=== PATIENT | male | born 1935 | race Caucasian/White ===

== ENCOUNTER 2020-03-14 10:48 | Outpatient (CLI) | payer MEDICARE, SELFPAY | END 2020-03-14 10:49 | disposition home or self-care (01) | LOC: ANHAUDIO 10:52 | PROVIDERS: PCP Family Medicine; Visit Provider Family Medicine | DX: H91.90 Unspecified hearing loss, unspecified ear (principal) | CPT/HCPCS: 99199 ==

== ENCOUNTER 2020-05-05 13:03 | Outpatient (CLI) | payer MEDICARE, SELFPAY | END 2020-05-05 13:04 | disposition home or self-care (01) | LOC: ANHAUDIO 13:04 | PROVIDERS: PCP Family Medicine; Visit Provider Family Medicine | DX: H90.3 Sensorineural hearing loss, bilateral (principal) | CPT/HCPCS: 92557; 92567 ==

== ENCOUNTER 2020-05-16 11:29 | Outpatient (RCR) | payer SELFPAY | END 2020-05-16 23:59 | disposition home or self-care (01) | LOC: ANHAUDIO 11:29 | PROVIDERS: PCP Family Medicine; Visit Provider Family Medicine | DX: Z46.1 Encounter for fitting and adjustment of hearing aid (principal) | CPT/HCPCS: 99199 ==

== ENCOUNTER 2020-08-12 10:24 | Emergency (ER) | payer MEDICARE, SELFPAY ==
[2020-08-12 10:37] VITALS: BP 119/69; PULSE 85; RESP 16; TEMP 36.4; O2SAT 95
[2020-08-12 11:33] VITALS: BP 119/69; PULSE 85; RESP 18; TEMP 36.4; O2SAT 95
--- NOTE | 2020-08-12 11:57 | ED.GENADULT ---
HPI - General Adult General Chief complaint: Wound/Laceration <RAJIV Mckeon Last Filed: 08/12/20 13:15> Stated complaint: wound on elbow <RAJIV Mckeon Last Filed: 08/12/20 13:15> Time Seen by Provider: 08/12/20 11:15 <RAJIV Mckeon Last Filed: 08/12/20 13:15> Source: patient and family <RAJIV Mckeon Last Filed: 08/12/20 13:15> Mode of arrival: ambulatory <RAJIV Mckeon Last Filed: 08/12/20 13:15> Limitations: no limitations <RAJIV Mckeon Last Filed: 08/12/20 13:15> History of Present Illness HPI narrative: Patient is a pleasant 85-year-old male who presents with his for skin tear to the posterior left elbow patient notes that he injured the elbow 2 days ago when he sustained a mechanical fall related to gait issues. Patient lives at home with his and has gait issues historically was with her and notes that he has had no other issues and he is otherwise been fine. . believes his tetanus to be up-to-date in the last 10 years. Patient sitting comfortably in the room and notes that there is no pain with movement of the elbow joint. Patient denies other injuries or complaints related to the fall specifically no head injury <RAJIV Mckeon Last Filed: 08/12/20 13:15> Related Data Home medications: Home Medications Medication Instructions Recorded Confirmed cyanocobalamin (vitamin B-12) 100 100 mcg PO DAILY 12/04/19 mcg tablet diltiazem HCl 120 mg 120 mg PO DAILY 12/04/19 capsule,extended release 24 hr metoprolol succinate 25 mg 25 mg PO DAILY 12/04/19 tablet,extended release 24 hr vit C 250 mg-E 200 unit-zinc 40 1 tablet PO BID 12/04/19 mg-copper 1 [id number] capsule warfarin 5 mg tablet 5 mg PO DAILY 12/04/19 <RAJIV Mckeon Last Filed: 08/12/20 13:15> Allergies/adverse reactions: Allergies Allergy/AdvReac Type Severity Reaction Status Date / Time Plyrjvu-Qfp-Hqc Reductase Allergy Mild SWELLING Verified 08/12/20 11:31 Inhibitor simvastatin Allergy Unknown Swelling Verified 08/12/20 11:31 <Jacob Gaffney PA-C - Last Filed: 08/12/20 13:15> Review of Systems Review of Systems: All systems reviewed & are unremarkable except as noted in HPI and below <Jacob Gaffney PA-C - Last Filed: 08/12/20 13:15> [facility] Past Medical History Medical History: Medical History Anemia, unspecified Arthritis Gait instability Hematochezia Peripheral neuropathy PND (post-nasal drip) Upper extremity weakness <Jacob Gaffney PA-C - Last Filed: 08/12/20 13:15> Family History Family History: Family History (Updated 12/11/17 @ 17:27 by DOCTOR UNKNOWN) Father Family history of cardiovascular disease <Jacob Gaffney PA-C - Last Filed: 08/12/20 13:15> Social History Social History: Social History Smoking status: Never smoker Second hand tobacco smoke exposure: No Alcohol intake: never Substance use: never Substance use type: does not use Gender identity (if verbalized by the patient): Male Sexual Orientation (if Verbalized by the Patient): Straight or Heterosexual <Jacob Gaffney PA-C - Last Filed: 08/12/20 13:15> Exam Narrative: Exam Narrative: GENERAL: Well-appearing, well-nourished, and in no acute distress. HEAD: Normocephalic, atraumatic. EYES: PERRLA and EOMI. ENT: Nares clear, no rhinorrhea or epistaxis. Mucous membranes moist. Oropharynx without tonsillar hypertrophy exudate or other lesions. NECK: Supple. No adenopathy or masses. CHEST: Clear to auscultation. No respiratory distress. No wheezes rales or rhonchi HEART: Regular rate and rhythm. No murmur heard. Normal peripheral pulses. ABDOMEN: Soft, nontender, nondistended EXTREMITIES: Normal range of motio
[2020-08-12 14:08] VITALS: BP 118/71; PULSE 88; RESP 16; TEMP 36.3; O2SAT 97
== END 2020-08-12 14:09 | disposition home or self-care (01) ==
PROVIDERS: Emergency Provider Emergency Medicine; PCP Family Medicine
DX: S51.012A Laceration without foreign body of left elbow, initial encounter (principal); W19.XXXA Unspecified fall, initial encounter; M19.90 Unspecified osteoarthritis, unspecified site; G62.9 Polyneuropathy, unspecified; R26.9 Unspecified abnormalities of gait and mobility
CPT/HCPCS: 99282

== ENCOUNTER 2021-06-07 10:55 | Observation (INO) | payer MEDICARE, SELFPAY ==
[2021-06-07] VITALS (38 sets, daily range): BP systolic 97–132; BP diastolic 42–89; PULSE 71–107; RESP 15–31; TEMP 36.5–37.1; O2SAT 94–98; BMI 31.6
--- NOTE | ~2021-06-07 | US_ITS ---
EXAMINATION: US carotid duplex BI EXAM DATE: 06/08/2021 10:12 INDICATION: Weakness. Confusion and altered mental status. TECHNIQUE: Grayscale, color and pulsed Doppler images of the cervical carotid arteries were obtained . The degree of vessel stenosis is placed in one of the following categories: normal, <50% stenosis, 50-69% stenosis, >=70% stenosis but less than near-occlusion, near-occlusion, or occlusion. Note that percent stenosis relative to normal distal artery lumen diameter is indirectly measured from velocit y measurements as described by Dion, et al. Radiology 2003; 229:[id number]. Comparison is made to prior examination from 04/11/2018. FINDINGS: Incidental note made of slightly irregular heart rate. RIGHT SIDE: Right common carotid artery peak systolic velocity (PSV in cm/s): 65 Right bulb/internal carotid artery peak systolic velocity (PSV in cm/s): 98 Right internal carotid artery end diastolic velocity (EDV in cm/s): 25 Right ICA/CCA peak systolic ratio: 1.5 Right external carotid artery peak systolic velocity (PSV in cm/s): 77 Right vertebral artery antegrade flow: yes There is mild carotid bulb plaque. Velocity and Doppler waveforms in the common and internal carotid arteries is normal. LEFT SIDE: Left common carotid artery peak systolic velocity (PSV in cm/s): 76 Left bulb/internal carotid artery peak systolic velocity (PSV in cm/s): 124 Left internal carotid artery end diastolic velocity (EDV in cm/s): 31 Left ICA/CCA peak systolic ratio: 1.6 Left external carotid artery peak systolic velocity (PSV in cm/s): 155 Left vertebral artery antegrade flow: yes Common carotid artery has a patent endograft or stents. There is mild carotid bulb plaque. Velocity and Doppler waveforms in the common and internal carotid arteries is normal. IMPRESSION: 1. Less than 50 percent stenosis in the right internal carotid artery. 2. Less than 50 percent stenosis in the left internal carotid artery. 3. Incidental slightly irregular heart rate; correlate with EKG. Reviewed, dictated and finalized at location B.
--- NOTE | ~2021-06-07 | MR_ITS ---
EXAMINATION: MR brain/brain stem wo/w con DATE: 06/10/2021 12:59 INDICATION: Weakness. Altered mental status. TECHNIQUE: Magnetic resonance imaging (MRI) of the brain and brainstem was performed without and with 18 mL MultiHance intravenous contrast. Sequences included sagittal and axial T1-weighted FSE, axial diffusion-weighted FS EPI, axial T2*-weighted GRE, axial T2-weighted FLAIR Propeller, and axial T2-we ighted Propeller. Postcontrast sequences included axial and coronal T1-weighted FSE. Apparent diffusi on coefficient (ADC) maps were created. COMPARISON: Brain MRI 04/11/2018, head CT 06/07/2021 FINDINGS: There are old infarcts in the cerebellum bilaterally. There is an old lacunar infarct in th e right carotid nucleus. There are scattered areas of nonspecific increased T2-weighted signal intens ity in the cerebral white matter. There is a small area of chronic cystic encephalomalacia in the rig ht frontal lobe deep white matter. There is no intracranial hemorrhage, acute infarction, or abnormal intracranial mass lesion. The ventricles are normal in size. There is mucosal thickening in the para nasal sinuses. There are likely changes of ocular lens replacement surgeries. There is a trace right mastoid effusion. IMPRESSION: 1. Old infarcts in the cerebellum, right caudate nucleus, and right frontal lobe. 2. Moderate nonspecific cerebral white matter disease, which likely represents chronic small vessel i schemic disease, worsened from 04/11/2018. Reviewed, dictated and finalized at location A. IMPRESSION: 1. Old infarcts in the cerebellum, right caudate nucleus, and right frontal lob e. 2. Moderate nonspecific cerebral white matter disease, which likely represents chronic small vessel ischemic disease, worsened from 04/11/2018.
--- NOTE | ~2021-06-07 | XR_ITS ---
EXAMINATION: XR barium swallow modified DATE: 06/10/2021 13:30 INDICATION: Cough during meals. Lewy body dementia. TECHNIQUE: The patient was given barium-containing material of multiple consistencies to swallow by jonny sadler speech pathologist while I performed fluoroscopy. Fluoroscopy exposure time was 2.9 minutes. The n umber of fluoroscopy images saved to the PACS was 1. Dose-area product was 3.1 Gy-cm^2. FINDINGS: There was tongue pumping and disorganized tongue movement. Reduced tongue base retraction is noted. T here is vallecular residue. There is no laryngeal penetration or aspiration. IMPRESSION: 1. No laryngeal penetration or aspiration. 2. Please refer to the speech therapy report for recommendations. Reviewed, dictated and finalized at location A.
--- NOTE | ~2021-06-07 | XR_ITS ---
EXAMINATION: XR chest 2V EXAM DATE: 06/07/2021 12:17 INDICATION: Weakness. TECHNIQUE: Frontal and lateral projections of the chest obtained and reviewed. There is no prior lacey dy for comparison. FINDINGS: The lungs are clear. There are no pleural effusions. There is cardiomegaly and pulmonary vascular congestion. Sternotomy wires are present without findings to suggest sternal dehiscence. Aor tic valve stent or replacement. There is no pneumothorax suspected. The bones and soft tissues are unremarkable. IMPRESSION: Cardiomegaly, congestion. Reviewed, dictated and finalized at location B. IMPRESSION: Cardiomegaly, congestion.
--- NOTE | ~2021-06-07 | CT_ITS ---
EXAMINATION: CT brain wo con DATE: 06/07/2021 15:37 INDICATION: Altered mental state. Confusion. TECHNIQUE: Computed tomography (CT) of the head was performed without intravenous contrast. The mA wa s adjusted according to patient size. Iterative reconstruction technique was employed. Exam dose: 75 6.67 mGy-cm total exam DLP. COMPARISON: 04/11/2018 CT brain and MR brain examination FINDINGS: The examination is limited by motion artifact. There is cerebral moderately prominent volume loss consistent with patient age. There is nonspecific diminished attenuation of the cerebral white matter, likely due to chronic small vessel ischemic changes. Chronic lacunar infarct of left basal ganglia. Bilateral cerebellar hemispheric infarcts are suggeste d. There are bilateral vertebral and basilar as well as internal carotid artery calcifications. No intracranial mass lesion or hemorrhage or recent cerebrovascular accident is evident. No subdural or epidural hematoma. No fracture or bone destruction of the cranial vault. There is partial opacification of the right ethmoid air cells. There is mild anterior right maxillary sinus mucoperiosteal thickening. The paranasal sinuses and the mastoid air cells otherwise appear no rmally developed and aerated. IMPRESSION: Cerebral atherosclerosis and chronic small vessel ischemic changes of the cerebral white matter Chronic left basal ganglia lacunar infarct and bilateral chronic cerebellar infarcts No acute intracranial finding is identified; examination is limited by motion artifact. Reviewed, dictated and finalized at Location A. Reviewed, dictated and finalized at location A. IMPRESSION: Cerebral atherosclerosis and chronic small vessel ischemic changes of the cerebral white matter Chronic left basal ganglia lacunar infarct and bilateral chronic cerebellar inf arcts No acute intracranial finding is identified; examination is limited by motion a rtifact.
--- NOTE | 2021-06-07 11:04 | ECG_ITS ---
Measurements Intervals [place] Rate: 91 P: [place]: 0 QRS: -72 QRSD: 170 T: 15 QT: 399 QTc: 492 Interpretive Statements ATRIAL FIBRILLATION VENTRICULAR PREMATURE COMPLEX LEFT AXIS DEVIATION RIGHT BUNDLE BRANCH BLOCK INFERIOR INFARCT, AGE INDETERMINATE EXTENSIVE ANTERIOR INFARCT, AGE INDETERMINATE ABNORMAL ECG Electronically Signed On 06-07-2021 16:23:13 CDT by Luis Rosa D.O.
[2021-06-07 11:19] LABS: Glucose Point of Care 129 mg/dl (65-105)
[2021-06-07 11:45] LABS: Basophils Percent Auto 0.2 % (0.2-1.2); Eosinophils Percent Auto 0.2 % (0-4.4); Hematocrit 33.9 % (42.0-52.0); Immature Granulocyte Absolute 0.06 K/mm3 (0.00-0.031); Immature Granulocyte Percent A 0.5 % (0-0.5); Lymphocytes Absolute Auto 0.51 K/mm3 (0.9-3.2); Lymphocytes Percent Auto 4.1 % (18.3-44.2); Mean Corpuscular HGB Conc 32.4 g/dl (32-36); Mean Corpuscular Hemoglobin 30.4 pg (26-34); Mean Corpuscular Volume 93.6 fl (80-100); Monocytes Absolute Auto 1.1 K/mm3 (0.1-0.6); Monocytes Percent Auto 8.6 % (2.6-8.5); Neutrophils Absolute Auto 10.8 K/mm3 (1.3-6.7); Neutrophils Percent Auto 86.4 % (45.5-73.1); Platelet Count Result 96 k/mm3 (150-375); Red Blood Count 3.62 M/mm3 (4.6-6.20); White Blood Count 12.5 K/mm3 (4.5-10.0)
[2021-06-07 11:57] LABS: Albumin Level 4.5 g/dL (3.5-5.1); Alkaline Phosphatase 93 U/L (38-126); Anion Gap 9 mmol/L (8-16); Aspartate Amino Transferase 24 U/L (17-59); Bilirubin,Total 0.9 mg/dL (0.2-1.3); Blood Urea Nitrogen 31 mg/dL (9-20); Calcium 9.4 mg/dL (8.4-10.2); Carbon Dioxide 25 mmol/L (22-30); Chloride 107 mmol/L (98-107); Estimated CRCL calculation 47 ml/min; Estimated Glomerular Filt Rate 58; Glucose 129 mg/dL (75-110); Potassium 4.6 mmol/L (3.4-5.0); Sodium 141 mmol/L (137-145)
[2021-06-07 12:02] LABS: INR 2.9; Prothrombin Time 29.6 Seconds (11.1-14.7)
[2021-06-07 12:17] LABS: Alanine Aminotransferase < 6 U/L (4-50)
[2021-06-07 12:18] LABS: Add Urine Microscopic? YES; Appearance Urine Clear (Clear); Bilirubin Urine Negative (Negative); Blood Urine Negative (Negative); Color Urine Yellow (Yellow); Glucose Urine UA Negative (Negative); Ketones Urine Negative (Negative); Leukocyte Esterase Ur Negative LEU/UL (Negative); Nitrate Urine Negative (Negative); Protein Urine Negative (Negative); RBC Urine 0-2 /hpf (0-2); Specific Grav Ur 1.014 (1.001-1.035); Urobilinogen Urine Negative mg/dL (<2.0); WBC Urine 0-3 /hpf
--- NOTE | 2021-06-07 13:39 | ED.WEAKNESS ---
HPI - Weakness General Chief complaint: Weakness Stated complaint: weakness Time Seen by Provider: 06/07/21 13:39 Source: family Mode of arrival: wheelchair Limitations: altered mental status History of Present Illness HPI Narrative: Patient is an 85-year-old male with history of gait instability, hypertension, hyperlipidemia, atrial fibrillation on anticoagulation, anemia peripheral neuropathy who presents for evaluation of weakness. Patient's provides much of the history at bedside. She states that the patient has had been weak over the course of the day. Patient was unable to ambulate this morning, and typically utilizes a walker to assist with his ambulation. Patient was unable to this, and was unable to help him stand at bedside. Patient is pleasant, alert to person, place, not to time at bedside. Intermittently, he can tell me the correct year. He denies any acute complaints of headache, chest pain or shortness of breath. Patient's states he is vaccinated for Covid. No history of Covid infection. He has had a runny nose and dry cough. He denies any leg pain. He denies recent fall or injury. I question the patient's and if he has a working diagnosis of Parkinson's dementia, she stated that he has not been diagnosed with this at this point, but has been taking carbidopa/levodopa. Patient does have a shuffling gait, no pill-rolling per . Related Data Home Medications Medication Instructions Recorded Confirmed cyanocobalamin (vitamin B-12) 100 100 mcg PO DAILY 12/04/19 05/09/21 mcg tablet diltiazem HCl 120 mg 120 mg PO DAILY 12/04/19 05/09/21 capsule,extended release 24 hr metoprolol succinate 25 mg 25 mg PO DAILY 12/04/19 05/09/21 tablet,extended release 24 hr vit C 250 mg-vit E 90 mg-zinc 40 1 tablet PO BID 12/04/19 05/09/21 mg-copper 1 ww-mqzjnm-yafayw capsule warfarin 5 mg tablet 5 mg PO DAILY 12/04/19 05/09/21 Allergies Allergy/AdvReac Type Severity Reaction Status Date / Time Emrinko-Mvm-Pvh Reductase Allergy Mild SWELLING Verified 05/09/21 14:18 Inhibitor simvastatin Allergy Unknown Swelling Verified 05/09/21 14:18 Review of Systems Review of Systems: Narrative: CONSTITUTIONAL: Denies fever, chills, or sweats. EYES: Denies visual changes, redness, or discharge. ENT: Reports rhinorrhea and congestion, denies sore throat CARDIOVASCULAR: Denies chest pain, palpitations, or edema. RESPIRATORY: Reports dry cough without shortness of breath GASTROINTESTINAL: Denies abdominal pain, nausea, vomiting, or diarrhea. GENITOURINARY: Denies dysuria or hematuria. SKIN: Denies rash or itching. MUSCULOSKELETAL: Denies back pain, joint pain, or myalgia. NEUROLOGIC: Denies headache, numbness, reports lower extremity weakness PMFSH Past Medical History Medical History (Updated 06/07/21 @ 16:52 by Mahnaz Angelo MD) Anemia, unspecified Arthritis Gait instability Hematochezia Peripheral neuropathy PND (post-nasal drip) Upper extremity weakness Family History Family History Father Family history of cardiovascular disease Social History Social History Smoking status: Never smoker Second hand tobacco smoke exposure: No Alcohol intake: never Substance use: never Substance use type: does not use Gender identity (if verbalized by the patient): Male Exam Narrative: Exam Narrative: GENERAL: Awake, alert, conversant, pleasant HEAD: Normocephalic, atraumatic. EYES: PERRLA and EOMI. ENT: Nares clear, no rhinorrhea or epistaxis. Mucous membranes moist. NECK: Supple. CHEST: No respiratory distress, breathing even and non labored HEART: Tachycardic rate, sinus rhythm ABDOMEN:Non distended, non tender EXTREMITIES: Normal range of motion. No edema. SKIN: Warm, dry, no rash. NEURO:No focal deficits. Alert and oriented x3. EOMs intact without nystagmus. No fac
[2021-06-07 17:50] LABS: Troponin I 0.057 ng/mL (0.000-0.034)
--- NOTE | 2021-06-07 20:20 | ADMGEN ---
This patient, Candice Marin, was admitted to IMU Room 232-01 on 06/07/21 at 2015. Patient/family oriented to hospital policies and general routines including ID bracelet, bed and alarms, visiting hours, pain management, procedures, bathroom and other care routines, personal items, smoking policy, room service/diet, and visiting hours. Information on how to activate the Rapid Response Team has been discussed. Patient/Family are encouraged to report perceived risks to care and to ask questions if they do not understand what they are told or what they should do.
--- NOTE | 2021-06-07 21:02 | PM.IMHP ---
H&P: HPI History of Present Illness Date/Time: 06/07/21 21:02Thireji is an 85-year-old male patient who has a past medical history of having aortic valve replacement. The patient is on Parkinson's medicine but isn't sure why he is on it. The patient is very hard of hearing and difficult to communicate with. The patient was brought in by his today into the emergency room for complaints of gait instability. The patient has a history of peripheral neuropathy. The patient's stated that he typically will ambulate with his walker but today he was unable to get up and walk with his walker. The was unable to help the patient stand up to his walker. He is alert orientated to person place and time. He denies any chest pain or shortness of breath. He had a runny nose and cough. The patient stated that he did receive both sets of COVID-19 vaccine. However since he had a runny nose and a dry cough the patient was swabbed in the emergency room for COVID-19. The patient has a shuffling walk but no pill rolling activities. Head CT was read as he report a atherosclerosis and chronic small vessel ischemic changes of the cerebral white matter. 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 No acute intracranial findings. His white count was elevated 12.5. His H&H 11.0 in 33.9. His troponin bumped to 0.057 however the patient is not having any chest pain. EKG was read as atrial fibrillation. Left axis deviation. Right bundle branch block. Inferior infarct age indeterminate. Extensive anterior infarction age intermittent abnormal EKG. Chest x-ray cardiomegaly, congestion.The patient was admitted to obs. dos 06/07/21. Chief Complaint: Weakness Review of Systems Review of Systems: All systems reviewed & are unremarkable except as noted in HPI and below Constitutional: Constitutional: Reports as per HPI and Reports no additional constitutional complaints Eyes: Eyes: Reports as per HPI and Reports no additional eye complaints ENT: Reports system reviewed and no additional complaints, except as documented and Reports Normal hearing present Cardiovascular: Cardiovascular: Reports no additional cardiovascular complaints Respiratory: Respiratory: Reports no additional respiratory complaints and Reports no additional respiratory complaints Gastrointestinal: Gastrointestinal: Reports as per HPI and Reports no additional gastrointestinal complaints Musculoskeletal: Musculoskeletal: Reports no additional musculoskeletal complaints Integumentary/Breasts: Skin/Breast: Reports system reviewed and no additional complaints, except as docu and Reports as per HPI Neurologic: Reports system reviewed and no additional complaints, except as documented, Reports as per HPI and Reports Normal hearing present Psychiatric: Psychiatric: Reports no additional psychiatric complaints and Reports as per HPI Endocrine: Endocrine: Reports no additional endocrine complaints Hematologic/Lymphatic: Hematologic/Lymphatic: Reports no additional hematologic/lymphatic complaints Allergic/Immunologic: Allergic/Immunologic: Reports no additional allergic/immunologic complaints [facility] Past Medical History Medical History (Updated 06/07/21 @ 21:20 by Rosita Bautista NP) Anemia, unspecified Arthritis BPH (benign prostatic hyperplasia) Chronic anticoagulation CVA (cerebral vascular accident) Gait instability Glaucoma Hematochezia Hyperlipidemia Hypertension Neuropathy Parkinson disease Peripheral neuropathy PND (post-nasal drip) Upper extremity weakness Surgical History Surgical History (Updated 06/07/21 @ 21:12 by Rosita Bautista NP) S/P AVR Family History Family History Father Family history of cardiovascular disease Social History Social History (Updated 06/07/21 @ 21:15 by Rosita Bautista NP) Social History: the patient lives with his w
[2021-06-07] MEDS: ATORVASTATIN 20 MG TABLET PO (21:44)
[2021-06-07] MEDS: TAMSULOSIN HCL 0.4 MG CAPSULE PO (21:44)
[2021-06-07] MEDS: WARFARIN (*PBKC) 5 MG TABLET PO (21:44)
--- NOTE | 2021-06-07 22:06 | ADMGEN ---
This patient, Candice Marin, was admitted to IMU Room 232-01 on 06/07/21 at 1999. Patient/family oriented to hospital policies and general routines including ID bracelet, bed and alarms, visiting hours, pain management, procedures, bathroom and other care routines, personal items, smoking policy, room service/diet, and visiting hours. Information on how to activate the Rapid Response Team has been discussed. Patient/Family are encouraged to report perceived risks to care and to ask questions if they do not understand what they are told or what they should do.
[2021-06-08] VITALS (13 sets, daily range): BP systolic 103–144; BP diastolic 57–78; PULSE 64–108; RESP 14–20; TEMP 36.6–36.9; O2SAT 95–99
--- NOTE | 2021-06-08 | ECHO_ITS ---
Patient Info Name: Candice Marin Age: 85 years : 1935 Gender: Male Ht: 68 in Wt: 208 lbs BSA: 2.16 m2 HR: 64 bpm BP: 123 / 77 mmHg Heart Rhythm: Atrial Fibrillation Technical Quality: Fair Exam Date: 06/08/2021 2:09 PM Exam Location: [facility] Patient Status: Inpatient Admit Date: 06/07/2021 Staff Ordering Physician: Rosita Bautista NP Speech Communication Instructor: Alexandra Crespo RDCS Attending Provider: Magda Hathaway MD Referring Physician: Michele JEAN; Exam Type: CA echo doppler color flow Study Info Indications - weakness AVR Complete two-dimensional, color flow and Doppler transthoracic echocardiogram is performed. Summary 1. Complete two-dimensional, color flow and Doppler transthoracic echocardiogram is performed. 2. Normal left ventricular size, with moderate to severe concentric left ventricular hypertrophy. Good systolic function, ejection fraction 68% with no segmental wall motion abnormalities. 3. Left atrial chamber dimension is moderately enlarged. 4. Right atrial chamber dimension is mildly enlarged. 5. There is mild mitral valve regurgitation. 6. Mild pulmonary hypertension, estimated pulmonary arterial systolic pressure is 39 mmHg. 7. Dilated inferior vena cava with >50% collapse upon inspiration consistent with elevated right atrial pressure, 10 mmHg. 8. The bioprosthetic aortic valve (TAVR) is not well interrogated but appears normal by 2D imaging. The peak velocity through the valve is 2 m/sec, which is normal. 9. Probable underlying atrial fibrillation. Left Ventricle Left ventricular chamber dimension is normal. Left ventricular systolic function is normal, estimated at 65-70%. There is moderately increased left ventricular wall thickness. Left ventricular septal wall motion is normal. The left ventricular diastolic function is abnormal. Right Ventricle Right ventricular chamber dimension is normal. Right ventricular systolic function is normal. Left Atria Left atrial chamber dimension is moderately enlarged. Right Atria Right atrial chamber dimension is mildly enlarged. Aortic Valve The TAVR aortic valve is trileaflet. There is no sclerosis of the TAVR aortic valve leaflets. There is no TAVR aortic valve stenosis. There is no regurgitation of the TAVR aortic valve. Pulmonic Valve The pulmonic valve is normal. There is no pulmonic valve stenosis. There is trace pulmonic regurgitation. Mitral Valve The mitral valve has normal leaflets. There is no mitral valve stenosis. There is mild mitral valve regurgitation. Tricuspid Valve The tricuspid valve leaflets are normal. There is no significant tricuspid valve stenosis. There is trace tricuspid valve regurgitation. Mild pulmonary hypertension, estimated pulmonary arterial systolic pressure is 39 mmHg. Pericardium/Pleural The pericardium appears normal. There is no pericardial effusion. Inferior Vena Cava Dilated inferior vena cava with >50% collapse upon inspiration consistent with elevated right atrial pressure, 10 mmHg. Aorta The aortic root size at the sinus of Valsalva is normal. The prox ascending aorta size is normal. Left Ventricular Outflow Tract Name Value Normal LVOT 2D LVOT D
[2021-06-08 05:34] LABS: Lactic Acid Reflex 0.7 mmol/L (0.7-2.1)
[2021-06-08 05:36] LABS: Basophils Percent Auto 0.2 % (0.2-1.2); Hematocrit 31.7 % (42.0-52.0); Hemoglobin 10.4 g/dL (14.0-18.0); Immature Granulocyte Percent A 0.7 % (0-0.5); Lymphocytes Absolute Auto 0.71 K/mm3 (0.9-3.2); Lymphocytes Percent Auto 5.1 % (18.3-44.2); Mean Corpuscular HGB Conc 32.8 g/dl (32-36); Mean Corpuscular Hemoglobin 30.7 pg (26-34); Mean Corpuscular Volume 93.5 fl (80-100); Mean Platelet Volume 12.5 fl (7.4-10.4); Monocytes Absolute Auto 1.4 K/mm3 (0.1-0.6); Monocytes Percent Auto 9.8 % (2.6-8.5); Neutrophils Absolute Auto 11.7 K/mm3 (1.3-6.7); Neutrophils Percent Auto 84.2 % (45.5-73.1); Platelet Count Result 91 k/mm3 (150-375); Red Blood Count 3.39 M/mm3 (4.6-6.20); Red Cell Distribution Width 17.1 % (11.5-14.5); White Blood Count 13.8 K/mm3 (4.5-10.0)
[2021-06-08 05:58] LABS: INR 3.4; Prothrombin Time 33.2 Seconds (11.1-14.7)
[2021-06-08 05:59] LABS: Alanine Aminotransferase 12 U/L (4-50); Albumin Level 4.1 g/dL (3.5-5.1); Alkaline Phosphatase 83 U/L (38-126); Anion Gap 12 mmol/L (8-16); Aspartate Amino Transferase 21 U/L (17-59); Bilirubin,Total 1.3 mg/dL (0.2-1.3); Blood Urea Nitrogen 30 mg/dL (9-20); Calcium 9.1 mg/dL (8.4-10.2); Carbon Dioxide 22 mmol/L (22-30); Chloride 107 mmol/L (98-107); Estimated CRCL calculation 55 ml/min; Estimated Glomerular Filt Rate > 60; Glucose 122 mg/dL (75-110); Lactate Dehydrogenase 477 U/L (313-618); Magnesium 1.8 mg/dL (1.6-2.3); Potassium 4.1 mmol/L (3.4-5.0); Sodium 141 mmol/L (137-145)
[2021-06-08 06:06] LABS: Troponin I 0.098 ng/mL (0.000-0.034)
[2021-06-08 07:23] LABS: Thyroid Stimulating Hormone Reflex 0.463 uIU/mL (0.465-4.68)
[2021-06-08] MEDS: PREGABALIN (*CRX) 50 MG CAPSULE PO ×3 (10:11→18:14)
[2021-06-08] MEDS: FUROSEMIDE 20 MG TABLET PO (10:12)
[2021-06-08] MEDS: VALSARTAN 80 MG TABLET PO (10:12)
[2021-06-08] MEDS: CLOPIDOGREL BISULFATE 75 MG TABLET PO (10:12)
[2021-06-08] MEDS: OPTI-GEN TAB 1 TABLET PO ×2 (10:13→18:14)
[2021-06-08] MEDS: CARBIDOPA/LEVODOPA 25/100 MG TABLET 1 TABLET PO ×2 (10:13→18:14)
[2021-06-08] MEDS: METOPROLOL SUCCINATE EXT REL 25 MG TABCR PO (10:13)
[2021-06-08] MEDS: FLUTICASONE PROPIONATE 0.05% NA SPR 16 GM BTL (*BKC) 2 SPRAY NASAL (10:13)
[2021-06-08] MEDS: hydroCHLOROthiazide 12.5 MG CAPSULE PO (10:13)
[2021-06-08 10:42] LABS: Free T4 Free Thyroxine Reflex 0.98 ng/dL (0.78-2.19)
[2021-06-08 10:53] LABS: Lactic Acid Reflex 1.1 mmol/L (0.7-2.1)
[2021-06-08 10:57] LABS: CRP 6.2 mg/dL (<1.0)
--- NOTE | 2021-06-08 11:24 | PM.CNCAR ---
Assessment and Plan Assessment and plan (1) Elevated troponin: Code(s): R77.8 - Other specified abnormalities of plasma proteins Status: Acute Assessment and Plan: Mild elevation of troponins, drawn apparently because of generalized weakness, no acute ischemic EKG changes or typical symptoms in a patient with longstanding heart disease. Likely has some underlying CAD because of the abnormal EKG and the small reversible defect on his Lexiscan a few years ago. Though admitted with weakness I doubt he has ACS or non-STEMI. Echo Shows good left ventricular function. Continue usual cardiac medications: Warfarin, Plavix, statin, beta-cruzito , furosemide and valsartan/HCT. No further workup needed. (2) S/p TAVR (transcatheter aortic valve replacement), bioprosthetic: Code(s): Z95.3 - Presence of xenogenic heart valve Status: Acute Assessment and Plan: normal function when checked 07/2019. Echo today showed normal Valve function. (3) Atrial fibrillation: Code(s): I48.91 - Unspecified atrial fibrillation Status: Acute Assessment and Plan: persistent atrial fibrillation, anticoagulated with warfarin. daily INRs. (4) Weakness: Code(s): R53.1 - Weakness Status: Acute Assessment and Plan: Appears to be due to age and underlying neurologic issue (5) Dementia: Code(s): F03.90 - Unspecified dementia without behavioral disturbance Status: Acute Assessment and Plan: evaluation and treatment per hospitalist Additional Plan No further cardiac evaluation needed at this time. Continue risk factor reduction. Please call if there is further change in clinical status. Will follow at a distance. History of Present Illness History of Present Illness Consult date/time: 06/08/21 11:24 Requesting physician: Rosita Bautista NP Reason For Visit: Weakness Narrative: Mr. Candice Marin is a 85-year-old white male whom we were asked to see at the request of the hospitalists for our advice and opinion regarding his elevated troponins, in consultation. Mr. Marin has an underlying neurologic disease (possibly Parkinson's) and was admitted with progressive weakness. He came to the point where he was unable to stand or ambulate. He has had some mild rhinorrhea and cough. For uncertain reasons troponins were drawn, and are elevated at 0.057, 0.098, 0/108 and 0.112. He is being evaluated for his weakness, rule out stroke, with an echo, MRI and carotid ultrasound. He will get PT/OT. The patient has a history of TAVR in October 2016 and atrial fibrillation. I was not able to find spencer more specific information from [facility] EMR, [facility] or Care everywhere.He is on warfarin. He has history of hypertension, hyperlipidemia and stroke. Pt Is a very unreliable historian because his dementia. Unfortunately his was not available at the bedside or by phone for further discussion. History was obtained from EMR. Review of Systems Constitutional: Constitutional: Reports fatigue, Reports lethargy and Reports weakness Eyes: Eyes: Reports no additional eye complaints ENT: Reports system reviewed and no additional complaints, except as documented and Denies epistaxis Cardiovascular: Cardiovascular: Denies chest pain and Denies lightheadedness Respiratory: Respiratory: Denies dyspnea and Denies dyspnea on exertion Gastrointestinal: Gastrointestinal: Denies abdominal pain Genitourinary: Genitourinary: Denies dysuria Musculoskeletal: Musculoskeletal: Reports no additional musculoskeletal complaints Integumentary/Breasts: Skin/Breast: Reports system reviewed and no additional complaints, except as docu Neurologic: Reports confusion Psychiatric: Psychiatric: Reports confusion PMF
[2021-06-08 11:29] LABS: Procalcitonin 0.3 ng/mL
[2021-06-08 11:51] LABS: Erythrocyte Sedimentation Rate 72 mm/hr (0-20)
[2021-06-08 12:00] LABS: Folic Acid 16.3 ng/mL (2.76->20)
[2021-06-08 12:58] LABS: NT Pro B Type Natriuretic Pept 6880 pg/mL (5-100)
[2021-06-08 13:03] LABS: Troponin I 0.108 ng/mL (0.000-0.034)
--- NOTE | 2021-06-08 13:14 | ECG_ITS ---
Measurements Intervals [place] Rate: 88 P: [place]: 0 QRS: -77 QRSD: 185 T: 24 QT: 426 QTc: 516 Interpretive Statements ATRIAL FIBRILLATION VENTRICULAR PREMATURE COMPLEXES RIGHT BUNDLE BRANCH BLOCK LEFT ANTERIOR FASCICULAR BLOCK INFERIOR INFARCT, AGE INDETERMINATE ABNORMAL ECG Electronically Signed On 06-08-2021 15:31:05 CDT by Luis Rosa D.O.
[2021-06-08 15:29] LABS: D Dimer 0.46 ug/mL (<0.48)
[2021-06-08 15:39] LABS: SARS-CoV-2 RNA PCR Negative
[2021-06-08 18:54] LABS: Troponin I 0.112 ng/mL (0.000-0.034)
--- NOTE | 2021-06-08 19:33 | PM.IMPN ---
Progress Note: A&P Assessment and Plan (1) Dementia: Qualifiers: Dementia type: Parkinson's disease Dementia behavioral disturbance: without behavioral disturbance Qualified Code(s): G20 - Parkinson's disease; F02.80 - Dementia in other diseases classified elsewhere without behavioral disturbance Code(s): F03.90 - Unspecified dementia without behavioral disturbance Status: Acute (2) Atrial fibrillation: Qualifiers: Atrial fibrillation type: persistent (not longstanding) Qualified Code(s): I48.19 - Other persistent atrial fibrillation Code(s): I48.91 - Unspecified atrial fibrillation Status: Acute (3) S/p TAVR (transcatheter aortic valve replacement), bioprosthetic: Code(s): Z95.3 - Presence of xenogenic heart valve Status: Acute (4) Elevated troponin: Code(s): R77.8 - Other specified abnormalities of plasma proteins Status: Acute Assessment and Plan: followed by cardiology for elevated troponin The following recommendations: no ischemic EKG changes or symptoms common a patient with longstanding heart disease. These appear to be nonspecific. No evidence of ACS or non-STEMI. Echo is pending but events shows no changes and no further cardiac workup is needed. Continue usual cardiac medications: Warfarin ( hold because of high INR today ), Plavix, statin, beta-cruzito , furosemide and valsartan/HCT. (5) Hyperlipidemia: Qualifiers: Hyperlipidemia type: mixed hyperlipidemia Qualified Code(s): E78.2 - Mixed hyperlipidemia Code(s): E78.5 - Hyperlipidemia, unspecified Status: Chronic (6) Hypertension: Qualifiers: Hypertension type: unspecified Qualified Code(s): I10 - Essential (primary) hypertension Code(s): I10 - Essential (primary) hypertension Status: Chronic (7) BPH (benign prostatic hyperplasia): Qualifiers: Lower urinary tract symptom presence: unspecified whether lower urinary tract symptoms present Qualified Code(s): N40.0 - Benign prostatic hyperplasia without lower urinary tract symptoms Code(s): N40.0 - Benign prostatic hyperplasia without lower urinary tract symptoms Status: Chronic (8) Parkinson disease: Code(s): G20 - Parkinson's disease Status: Chronic (9) Gait instability: Code(s): R26.81 - Unsteadiness on feet Status: Acute (10) Coronary artery disease involving red [place] coronary artery of red cliff heart: Code(s): I25.10 - Atherosclerotic heart disease of red cliff coronary artery without angina pectoris Status: Acute (11) Hypothyroidism determined by thyroid function test: Code(s): E03.9 - Hypothyroidism, unspecified; R94.6 - Abnormal results of thyroid function studies Status: Acute Subjective Date/time seen: 06/08/21 19:33 Interval history: patient is very hard of hearing. no complaints of chest pain nausea vomiting dizziness reported Review of Systems Review of Systems: All systems reviewed & are unremarkable except as noted in HPI and below Exam Const: General: cooperative HENMT: Head: normal to inspection General nose exam: Normal external nose present Face and sinus: normal facial exam Neck: Neck: normal visual inspection Chest: Chest palpation & inspection: normal inspection of the chest Resp: Effort & Inspection: normal respiratory effort Auscultation: clear to auscultation bilaterally Cardio: Palpation: normal PMI Rate: regular rate Rhythm: abnormal rhythm GI: Inspection: normal to inspection GI Palp: Yes Soft to palpation Percussion: Yes normal to percussion Back/Spine/Pelvis: Back: no CVA tenderness Skin: General skin exam: normal color and no rashes or lesions noted Neuro: General: patient oriented x3 Extrem: General: normal to inspection Objective Data Vital Signs Vital Signs: Vital Signs - 24 hr 06/07/21 20:00 06/07/21 20:16 06/07/21 22:00 Temper
[2021-06-08] MEDS: WARFARIN (*PBKC) 5 MG TABLET PO (20:32)
[2021-06-08] MEDS: ATORVASTATIN 20 MG TABLET PO (20:32)
[2021-06-08] MEDS: TAMSULOSIN HCL 0.4 MG CAPSULE PO (20:32)
[2021-06-09] VITALS (11 sets, daily range): BP systolic 105–148; BP diastolic 50–92; PULSE 86–129; RESP 18–22; TEMP 36.1–37.1; O2SAT 93–97
[2021-06-09] MEDS: METOPROLOL TARTRATE INJ 5 MG/5 ML VIAL IV PUSH (01:40)
[2021-06-09] MEDS: ONDANSETRON INJ 4 MG/2 ML VIAL IV PUSH (01:48)
[2021-06-09 04:53] LABS: Basophils Percent Auto 0.2 % (0.2-1.2); Hematocrit 31.6 % (42.0-52.0); Hemoglobin 10.7 g/dL (14.0-18.0); Immature Granulocyte Absolute 0.07 K/mm3 (0.00-0.031); Immature Granulocyte Percent A 0.5 % (0-0.5); Lymphocytes Absolute Auto 0.63 K/mm3 (0.9-3.2); Lymphocytes Percent Auto 4.9 % (18.3-44.2); Mean Corpuscular HGB Conc 33.9 g/dl (32-36); Mean Corpuscular Hemoglobin 30.9 pg (26-34); Mean Corpuscular Volume 91.3 fl (80-100); Mean Platelet Volume 12.3 fl (7.4-10.4); Monocytes Absolute Auto 1.2 K/mm3 (0.1-0.6); Monocytes Percent Auto 9.1 % (2.6-8.5); Neutrophils Percent Auto 85.3 % (45.5-73.1); Platelet Count Result 83 k/mm3 (150-375); Red Blood Count 3.46 M/mm3 (4.6-6.20); Red Cell Distribution Width 16.5 % (11.5-14.5); White Blood Count 12.9 K/mm3 (4.5-10.0)
[2021-06-09 05:02] LABS: Prothrombin Time 37.4 Seconds (11.1-14.7)
[2021-06-09 05:08] LABS: Alanine Aminotransferase 8 U/L (4-50); Alkaline Phosphatase 82 U/L (38-126); Anion Gap 9 mmol/L (8-16); Aspartate Amino Transferase 25 U/L (17-59); Bilirubin,Total 1.2 mg/dL (0.2-1.3); Blood Urea Nitrogen 27 mg/dL (9-20); Calcium 8.9 mg/dL (8.4-10.2); Carbon Dioxide 25 mmol/L (22-30); Chloride 105 mmol/L (98-107); Estimated CRCL calculation 55 ml/min; Estimated Glomerular Filt Rate > 60; Glucose 131 mg/dL (75-110); Potassium 4.2 mmol/L (3.4-5.0); Sodium 139 mmol/L (137-145)
[2021-06-09] MEDS: PREGABALIN (*CRX) 50 MG CAPSULE PO ×2 (09:29→18:36)
[2021-06-09] MEDS: CLOPIDOGREL BISULFATE 75 MG TABLET PO (09:30)
[2021-06-09] MEDS: OPTI-GEN TAB 1 TABLET PO ×2 (09:30→18:36)
[2021-06-09] MEDS: hydroCHLOROthiazide 12.5 MG CAPSULE PO (09:30)
[2021-06-09] MEDS: FUROSEMIDE 20 MG TABLET PO (09:30)
[2021-06-09] MEDS: CYANOCOBALAMIN 250 MCG TABLET PO (09:30)
[2021-06-09] MEDS: CARBIDOPA/LEVODOPA 25/100 MG TABLET 1 TABLET PO ×2 (09:30→18:36)
[2021-06-09] MEDS: METOPROLOL SUCCINATE EXT REL 25 MG TABCR PO (09:30)
[2021-06-09] MEDS: FLUTICASONE PROPIONATE 0.05% NA SPR 16 GM BTL (*BKC) 2 SPRAY NASAL (09:31)
[2021-06-09] MEDS: VALSARTAN 80 MG TABLET PO (09:31)
[2021-06-09] MEDS: HALOPERIDOL LACTATE 5 MG/ML VIAL IM (12:17)
--- NOTE | 2021-06-09 16:11 | PM.IMPN ---
Progress Note: A&P Assessment and Plan (1) Hypothyroidism determined by thyroid function test: Code(s): E03.9 - Hypothyroidism, unspecified; R94.6 - Abnormal results of thyroid function studies Status: Acute (2) Dementia: Qualifiers: Dementia type: Parkinson's disease Dementia behavioral disturbance: without behavioral disturbance Qualified Code(s): G20 - Parkinson's disease; F02.80 - Dementia in other diseases classified elsewhere without behavioral disturbance Code(s): F03.90 - Unspecified dementia without behavioral disturbance Status: Acute (3) Atrial fibrillation: Qualifiers: Atrial fibrillation type: persistent (not longstanding) Qualified Code(s): I48.19 - Other persistent atrial fibrillation Code(s): I48.91 - Unspecified atrial fibrillation Status: Acute (4) S/p TAVR (transcatheter aortic valve replacement), bioprosthetic: Code(s): Z95.3 - Presence of xenogenic heart valve Status: Acute (5) Elevated troponin: Code(s): R77.8 - Other specified abnormalities of plasma proteins Status: Acute (6) Hyperlipidemia: Qualifiers: Hyperlipidemia type: mixed hyperlipidemia Qualified Code(s): E78.2 - Mixed hyperlipidemia Code(s): E78.5 - Hyperlipidemia, unspecified Status: Chronic (7) Hypertension: Qualifiers: Hypertension type: unspecified Qualified Code(s): I10 - Essential (primary) hypertension Code(s): I10 - Essential (primary) hypertension Status: Chronic (8) BPH (benign prostatic hyperplasia): Qualifiers: Lower urinary tract symptom presence: unspecified whether lower urinary tract symptoms present Qualified Code(s): N40.0 - Benign prostatic hyperplasia without lower urinary tract symptoms Code(s): N40.0 - Benign prostatic hyperplasia without lower urinary tract symptoms Status: Chronic (9) Parkinson disease: Code(s): G20 - Parkinson's disease Status: Chronic Subjective Date/time seen: 06/09/21 16:11 Interval history: 84-year-old male with past medical history significant for hypertension, hyperlipidemia, atrial fibrillation on Coumadin, status post TAVR multiple falls, Parkinson's disease, hypothyroidism and coronary artery disease presented with worsening weakness and dementia. He is being managed as a case of worsening dementia. during his admission he was noted to have elevated troponin for which reason cardiology was brought on board and deemed secondary to demand ischemia. As per cardiology patient does not require any further cardiology testing. He is also noted to have leukocytosis without fever. A urinalysis and chest x-ray was done which did not reveal any concerning findings for infection. At this time patient does not have any fever and is being monitored. He was also evaluated by PT OT and has been recommended rehab and is awaiting placement. This a.m. patient is also noted to have an INR which is elevated to 4. As a result Coumadin dose will be held today. INR will be checked tomorrow and Coumadin can be resumed if within normal limits. patient was also noted to be agitated requiring a sitter in place. IM Haldol has been started p.r.n.. And patient will be started on Seroquel q.h.s.. Review of Systems Review of Systems: Narrative: A 10 point review of system was conducted which was otherwise negative Exam Const: General: combative and confusion HENMT: Head: normal to inspection Eyes: General: appearance normal, both eyes and all related structures Neck: Neck: normal visual inspection Chest: Chest palpation & inspection: normal inspection of the chest Resp: Effort & Inspection: normal respiratory effort Auscultation: clear to auscultation bilaterally Percussion: percussion normal Cardio: Jugular venous distension: no JVD Palpation: normal PMI Rate: regular rate Rhythm: abnormal rhythm GI: Inspection: normal to
[2021-06-09] MEDS: ATORVASTATIN 20 MG TABLET PO (20:16)
[2021-06-09] MEDS: TAMSULOSIN HCL 0.4 MG CAPSULE PO (20:16)
[2021-06-09] MEDS: QUEtiapine FUMARATE 12.5 MG TABLET PO (20:16)
[2021-06-09] MEDS: HALOPERIDOL 0.5 MG TABLET PO (20:16)
[2021-06-10] VITALS (10 sets, daily range): BP systolic 100–119; BP diastolic 50–62; PULSE 95–112; RESP 17–22; TEMP 36.9–37.7; O2SAT 91–95
[2021-06-10 05:08] LABS: Prothrombin Time 37.8 Seconds (11.1-14.7)
[2021-06-10] MEDS: PREGABALIN (*CRX) 50 MG CAPSULE PO (09:27)
[2021-06-10] MEDS: VALSARTAN 80 MG TABLET PO (09:28)
[2021-06-10] MEDS: CLOPIDOGREL BISULFATE 75 MG TABLET PO (09:29)
[2021-06-10] MEDS: OPTI-GEN TAB 1 TABLET PO (09:29)
[2021-06-10] MEDS: FUROSEMIDE 20 MG TABLET PO (09:29)
[2021-06-10] MEDS: FLUTICASONE PROPIONATE 0.05% NA SPR 16 GM BTL (*BKC) 2 SPRAY NASAL (09:30)
--- NOTE | 2021-06-10 10:23 | PM.PNCARD ---
Progress Note: A&P Assessment and Plan (1) Elevated troponin: Code(s): R77.8 - Other specified abnormalities of plasma proteins Status: Acute Assessment and Plan: Mild elevation of troponins, drawn apparently because of generalized weakness, no acute ischemic EKG changes or typical symptoms in a patient with longstanding heart disease. Likely has some underlying CAD because of the abnormal EKG and the small reversible defect on his Lexiscan a few years ago. Though admitted with weakness I doubt he has ACS or non-STEMI. Echo Shows good left ventricular function. Continue usual cardiac medications: Plavix, statin, beta-cruzito , furosemide and valsartan Continue to hold warfarin because of supratherapeutic INR. Hydrochlorothiazide is on hold. Will increase his metoprolol to 50 mg p.o. daily. (2) S/p TAVR (transcatheter aortic valve replacement), bioprosthetic: Code(s): Z95.3 - Presence of xenogenic heart valve Status: Acute Assessment and Plan: normal function when checked 07/2019. Echo showed normal Valve function. (3) Atrial fibrillation: Qualifiers: Atrial fibrillation type: persistent (not longstanding) Qualified Code(s): I48.19 - Other persistent atrial fibrillation Code(s): I48.91 - Unspecified atrial fibrillation Status: Acute Assessment and Plan: persistent atrial fibrillation, anticoagulated with warfarin. daily INRs. (4) Weakness: Code(s): R53.1 - Weakness Status: Acute Assessment and Plan: Appears to be due to age and underlying neurologic issue (5) Dementia: Qualifiers: Dementia type: Parkinson's disease Dementia behavioral disturbance: without behavioral disturbance Qualified Code(s): G20 - Parkinson's disease; F02.80 - Dementia in other diseases classified elsewhere without behavioral disturbance Code(s): F03.90 - Unspecified dementia without behavioral disturbance Status: Acute Assessment and Plan: evaluation and treatment per hospitalist Additional Plan No further cardiac evaluation needed at this time. Continue risk factor reduction. Subjective Date/time seen: 06/10/21 10:23 Interval history: 84-year-old male with past medical history significant for hypertension, hyperlipidemia, atrial fibrillation on Coumadin, status post TAVR multiple falls, Parkinson's disease, hypothyroidism and coronary artery disease presented with worsening weakness and dementia. He is being managed as a case of worsening dementia. during his admission he was noted to have elevated troponin for which reason cardiology was brought on board and deemed secondary to demand ischemia. As per cardiology patient does not require any further cardiology testing. He is also noted to have leukocytosis without fever. A urinalysis and chest x-ray was done which did not reveal any concerning findings for infection. At this time patient does not have any fever and is being monitored. date of service 06/10/2021: Questions why he is here. But he does deny any chest pain or shortness of breath. Review of Systems Constitutional: Constitutional: Reports fatigue, Reports lethargy and Reports weakness Eyes: Eyes: Reports no additional eye complaints ENT: Reports system reviewed and no additional complaints, except as documented and Denies epistaxis Cardiovascular: Cardiovascular: Denies chest pain, Denies lightheadedness, Denies dyspnea and Denies dyspnea on exertion Respiratory: Respiratory: Denies dyspnea and Denies dyspnea on exertion Gastrointestinal: Gastrointestinal: Denies abdominal pain Genitourinary: Genitourinary: Denies dysuria Musculoskeletal: Musculoskeletal: Reports no additional musculoskeletal complaints Integumentary/Breasts:
--- NOTE | 2021-06-10 12:01 | PM.IMPN ---
Progress Note: A&P Assessment and Plan (1) Hypothyroidism determined by thyroid function test: Code(s): E03.9 - Hypothyroidism, unspecified; R94.6 - Abnormal results of thyroid function studies Status: Acute (2) Dementia: Qualifiers: Dementia type: Lewy body dementia Dementia behavioral disturbance: with behavioral disturbance Qualified Code(s): G31.83 - Dementia with Lewy bodies; F02.81 - Dementia in other diseases classified elsewhere with behavioral disturbance Code(s): F03.90 - Unspecified dementia without behavioral disturbance Status: Acute Assessment and Plan: History of hypnagogic hallucinations followed by memory problems than gait disturbance and shakes then behavior problems is most consistent with Lewy body dementia Rather than primary Parkinson's disease or other types of dementia. If possible avoid antipsychotics for control of behaviors Since he has a history of atrial fibrillation and hypertension, trial of a nonspecific beta-cruzito may be helpful for both behaviors and cardiovascular issues valproic acid, clonidine, and sertraline might be considered as well MRI brain 06/10 pending (3) Atrial fibrillation: Qualifiers: Atrial fibrillation type: persistent (not longstanding) Qualified Code(s): I48.19 - Other persistent atrial fibrillation Code(s): I48.91 - Unspecified atrial fibrillation Status: Acute Assessment and Plan: INR 4.0 on June 10, hold warfarin (4) S/p TAVR (transcatheter aortic valve replacement), bioprosthetic: Code(s): Z95.3 - Presence of xenogenic heart valve Status: Acute Assessment and Plan: valve intact by echo June 08 (5) Elevated troponin: Code(s): R77.8 - Other specified abnormalities of plasma proteins Status: Acute Assessment and Plan: followed by cardiology for elevated troponin The following recommendations: no ischemic EKG changes or symptoms common a patient with longstanding heart disease. These appear to be nonspecific. No evidence of ACS or non-STEMI. Echo is pending but events shows no changes and no further cardiac workup is needed. Continue usual cardiac medications: Warfarin ( hold because of high INR today ), Plavix, statin, beta-cruzito , furosemide and valsartan/HCT. (6) Hyperlipidemia: Qualifiers: Hyperlipidemia type: mixed hyperlipidemia Qualified Code(s): E78.2 - Mixed hyperlipidemia Code(s): E78.5 - Hyperlipidemia, unspecified Status: Chronic (7) Hypertension: Qualifiers: Hypertension type: unspecified Qualified Code(s): I10 - Essential (primary) hypertension Code(s): I10 - Essential (primary) hypertension Status: Chronic Assessment and Plan: 06/10 blood pressure running 100/60 range, so stop valsartan and hydrochlorothiazide and initiate propranolol in attempt to address both neurologic and cardiovascular issues (8) BPH (benign prostatic hyperplasia): Qualifiers: Lower urinary tract symptom presence: unspecified whether lower urinary tract symptoms present Qualified Code(s): N40.0 - Benign prostatic hyperplasia without lower urinary tract symptoms Code(s): N40.0 - Benign prostatic hyperplasia without lower urinary tract symptoms Status: Chronic Subjective Date/time seen: 06/10/21 12:01 Interval history: 84-year-old male with past medical history significant for hypertension, hyperlipidemia, atrial fibrillation on Coumadin, status post TAVR multiple falls, Parkinson's disease, hypothyroidism and coronary artery disease presented with worsening weakness and confusion. Several months of hypnagogic hallucinations followed by memory problems then gait and balance problems with tremors. Incontinent of urine due to inability to reach toilet in time. Coughs when eating and most other times. No episodes of choking noted by spouse. 06/10. history obtained f
--- NOTE | 2021-06-10 14:18 | PCSTNOTE ---
MBS completed. Please see ST evaluation for details and recommendations.
--- NOTE | 2021-06-10 21:00 | PC.NURSE ---
This patient, Candice Marin, was received from [U [id number] ] on 06/10/21 at 2100. Patient/family oriented to unit policies and routines
--- NOTE | 2021-06-10 21:05 | PC.NURSE ---
This patient, Candice Marin, was transferred to [facility] on 06/10/21 at 2105. Personal belongings sent with patient. Report given to Shanelle. Appropriate documentation sent with patient.
[2021-06-10] MEDS: PROPRANOLOL HCL 20 MG TABLET PO (22:00)
[2021-06-10] MEDS: TAMSULOSIN HCL 0.4 MG CAPSULE PO (22:00)
[2021-06-10] MEDS: ATORVASTATIN 20 MG TABLET PO (22:01)
[2021-06-11 05:57] LABS: Basophils Percent Auto 0.5 % (0.2-1.2); Eosinophils Percent Auto 0.5 % (0-4.4); Hematocrit 31.9 % (42.0-52.0); Hemoglobin 10.8 g/dL (14.0-18.0); Immature Granulocyte Absolute 0.08 K/mm3 (0.00-0.031); Immature Granulocyte Percent A 0.9 % (0-0.5); Lymphocytes Absolute Auto 0.74 K/mm3 (0.9-3.2); Lymphocytes Percent Auto 8.7 % (18.3-44.2); Mean Corpuscular HGB Conc 33.9 g/dl (32-36); Mean Corpuscular Hemoglobin 30.8 pg (26-34); Mean Corpuscular Volume 90.9 fl (80-100); Mean Platelet Volume 11.9 fl (7.4-10.4); Monocytes Absolute Auto 1.2 K/mm3 (0.1-0.6); Monocytes Percent Auto 13.6 % (2.6-8.5); Neutrophils Absolute Auto 6.4 K/mm3 (1.3-6.7); Neutrophils Percent Auto 75.8 % (45.5-73.1); Platelet Count Result 116 k/mm3 (150-375); Red Blood Count 3.51 M/mm3 (4.6-6.20); Red Cell Distribution Width 16.3 % (11.5-14.5); White Blood Count 8.5 K/mm3 (4.5-10.0)
[2021-06-11 06:00] VITALS: BP 123/64; PULSE 94; RESP 96; TEMP 37.1; O2SAT 95
[2021-06-11 06:01] LABS: Anion Gap 11 mmol/L (8-16); Blood Urea Nitrogen 43 mg/dL (9-20); Calcium 8.9 mg/dL (8.4-10.2); Carbon Dioxide 24 mmol/L (22-30); Chloride 106 mmol/L (98-107); Estimated CRCL calculation 46 ml/min; Estimated Glomerular Filt Rate 58; Glucose 117 mg/dL (75-110); Potassium 3.9 mmol/L (3.4-5.0); Sodium 141 mmol/L (137-145)
[2021-06-11 06:09] LABS: INR 2.7; Prothrombin Time 27.6 Seconds (11.1-14.7)
[2021-06-11 08:19] VITALS: PULSE 100
[2021-06-11] MEDS: PREGABALIN (*CRX) 50 MG CAPSULE PO ×3 (08:19→17:17)
[2021-06-11] MEDS: CLOPIDOGREL BISULFATE 75 MG TABLET PO (08:19)
[2021-06-11] MEDS: OPTI-GEN TAB 1 TABLET PO ×2 (08:19→17:17)
[2021-06-11] MEDS: METOPROLOL SUCCINATE EXT REL 50 MG TABCR PO (08:19)
[2021-06-11] MEDS: CARBIDOPA/LEVODOPA 25/100 MG TABLET 1 TABLET PO ×2 (08:19→17:17)
[2021-06-11] MEDS: FUROSEMIDE 20 MG TABLET PO (08:19)
[2021-06-11] MEDS: CYANOCOBALAMIN 250 MCG TABLET PO (08:19)
[2021-06-11] MEDS: FLUTICASONE PROPIONATE 0.05% NA SPR 16 GM BTL (*BKC) 2 SPRAY NASAL (08:26)
--- NOTE | 2021-06-11 09:25 | PM.PNCARD ---
Progress Note: A&P Assessment and Plan (1) Elevated troponin: Code(s): R77.8 - Other specified abnormalities of plasma proteins Status: Acute Assessment and Plan: Mild elevation of troponins, drawn apparently because of generalized weakness, no acute ischemic EKG changes or typical symptoms in a patient with longstanding heart disease. Likely has some underlying CAD because of the abnormal EKG and the small reversible defect on his Lexiscan a few years ago. Though admitted with weakness I doubt he has ACS or non-STEMI. Echo Shows good left ventricular function. Continue usual cardiac medications: Plavix, statin, beta-cruzito , furosemide and valsartan INR has came down. Will resume his warfarin at 3 mg daily. Continue current dose of metoprolol. (2) S/p TAVR (transcatheter aortic valve replacement), bioprosthetic: Code(s): Z95.3 - Presence of xenogenic heart valve Status: Acute Assessment and Plan: normal function when checked 07/2019. Echo showed normal Valve function. (3) Atrial fibrillation: Qualifiers: Atrial fibrillation type: persistent (not longstanding) Qualified Code(s): I48.19 - Other persistent atrial fibrillation Code(s): I48.91 - Unspecified atrial fibrillation Status: Acute Assessment and Plan: persistent atrial fibrillation, anticoagulated with warfarin. daily INRs. (4) Weakness: Code(s): R53.1 - Weakness Status: Acute Assessment and Plan: Appears to be due to age and underlying neurologic issue (5) Dementia: Qualifiers: Dementia type: Lewy body dementia Dementia behavioral disturbance: with behavioral disturbance Qualified Code(s): G31.83 - Dementia with Lewy bodies; F02.81 - Dementia in other diseases classified elsewhere with behavioral disturbance Code(s): F03.90 - Unspecified dementia without behavioral disturbance Status: Acute Assessment and Plan: evaluation and treatment per hospitalist Subjective Date/time seen: 06/11/21 09:25 Interval history: 84-year-old male with past medical history significant for hypertension, hyperlipidemia, atrial fibrillation on Coumadin, status post TAVR multiple falls, Parkinson's disease, hypothyroidism and coronary artery disease presented with worsening weakness and dementia. He is being managed as a case of worsening dementia. during his admission he was noted to have elevated troponin for which reason cardiology was brought on board and deemed secondary to demand ischemia. As per cardiology patient does not require any further cardiology testing. He is also noted to have leukocytosis without fever. A urinalysis and chest x-ray was done which did not reveal any concerning findings for infection. At this time patient does not have any fever and is being monitored. date of service 06/11/2021: he does deny any chest pain or shortness of breath. no edema Review of Systems Constitutional: Constitutional: Reports fatigue, Reports lethargy and Reports weakness Eyes: Eyes: Reports no additional eye complaints ENT: Reports system reviewed and no additional complaints, except as documented and Denies epistaxis Cardiovascular: Cardiovascular: Denies chest pain, Denies lightheadedness, Denies dyspnea and Denies dyspnea on exertion Respiratory: Respiratory: Denies dyspnea and Denies dyspnea on exertion Gastrointestinal: Gastrointestinal: Denies abdominal pain Genitourinary: Genitourinary: Denies dysuria Musculoskeletal: Musculoskeletal: Reports no additional musculoskeletal complaints Integumentary/Breasts: Skin/Breast: Reports system reviewed and no additional complaints, except as docu Neurologic: Reports confusion and Reports weakness Psychiatric: Psychiatric: Reports
[2021-06-11 10:06] VITALS: PULSE 105
[2021-06-11] MEDS: PROPRANOLOL HCL 20 MG TABLET PO ×2 (10:06→21:17)
--- NOTE | 2021-06-11 12:26 | PM.IMPN ---
Progress Note: A&P Assessment and Plan (1) Hypothyroidism determined by thyroid function test: Code(s): E03.9 - Hypothyroidism, unspecified; R94.6 - Abnormal results of thyroid function studies Status: Acute (2) Dementia: Qualifiers: Dementia type: Lewy body dementia Dementia behavioral disturbance: with behavioral disturbance Qualified Code(s): G31.83 - Dementia with Lewy bodies; F02.81 - Dementia in other diseases classified elsewhere with behavioral disturbance Code(s): F03.90 - Unspecified dementia without behavioral disturbance Status: Acute Assessment and Plan: History of hypnagogic hallucinations followed by memory problems than gait disturbance and shakes then behavior problems is most consistent with Lewy body dementia Rather than primary Parkinson's disease or other types of dementia. If possible avoid antipsychotics for control of behaviors Since he has a history of atrial fibrillation and hypertension, trial of a nonspecific beta-cruzito may be helpful for both behaviors and cardiovascular issues valproic acid, clonidine, and sertraline might be considered as well MRI brain 06/10 with small old infarcts, nothing acute. Await SNF rehab. (3) Atrial fibrillation: Qualifiers: Atrial fibrillation type: persistent (not longstanding) Qualified Code(s): I48.19 - Other persistent atrial fibrillation Code(s): I48.91 - Unspecified atrial fibrillation Status: Acute Assessment and Plan: INR 4.0 on June 10, hold warfarin INR 2.7 06/11, resume warfarin 3mg q PM (4) S/p TAVR (transcatheter aortic valve replacement), bioprosthetic: Code(s): Z95.3 - Presence of xenogenic heart valve Status: Acute Assessment and Plan: valve intact by echo June 08 (5) Elevated troponin: Code(s): R77.8 - Other specified abnormalities of plasma proteins Status: Acute Assessment and Plan: followed by cardiology for elevated troponin The following recommendations: no ischemic EKG changes or symptoms common a patient with longstanding heart disease. These appear to be nonspecific. No evidence of ACS or non-STEMI. Echo is pending but events shows no changes and no further cardiac workup is needed. Continue usual cardiac medications: Warfarin ( hold because of high INR today ), Plavix, statin, beta-cruzito , furosemide and valsartan/HCT. (6) Hyperlipidemia: Qualifiers: Hyperlipidemia type: mixed hyperlipidemia Qualified Code(s): E78.2 - Mixed hyperlipidemia Code(s): E78.5 - Hyperlipidemia, unspecified Status: Chronic (7) Hypertension: Qualifiers: Hypertension type: unspecified Qualified Code(s): I10 - Essential (primary) hypertension Code(s): I10 - Essential (primary) hypertension Status: Chronic Assessment and Plan: 06/10 blood pressure running 100/60 range, so stop valsartan and hydrochlorothiazide and initiate propranolol in attempt to address both neurologic and cardiovascular issues (8) BPH (benign prostatic hyperplasia): Qualifiers: Lower urinary tract symptom presence: unspecified whether lower urinary tract symptoms present Qualified Code(s): N40.0 - Benign prostatic hyperplasia without lower urinary tract symptoms Code(s): N40.0 - Benign prostatic hyperplasia without lower urinary tract symptoms Status: Chronic Subjective Date/time seen: 06/11/21 12:26 Interval history: 84-year-old male with past medical history significant for hypertension, hyperlipidemia, atrial fibrillation on Coumadin, status post TAVR multiple falls, Parkinson's disease, hypothyroidism and coronary artery disease presented with worsening weakness and confusion. Several months of hypnagogic hallucinations followed by memory problems then gait and balance problems with tremors. Incontinent of urine due to inability to reach toilet in time. Coughs when eating a
[2021-06-11 14:00] VITALS: BP 134/67; PULSE 99; RESP 20; TEMP 35.9; O2SAT 97
[2021-06-11] MEDS: WARFARIN (*PBKC) 3 MG TABLET PO (18:33)
[2021-06-11] MEDS: TAMSULOSIN HCL 0.4 MG CAPSULE PO (21:14)
[2021-06-11] MEDS: ATORVASTATIN 20 MG TABLET PO (21:15)
[2021-06-11 21:17] VITALS: PULSE 103
[2021-06-11 21:41] VITALS: BP 132/88; PULSE 105; RESP 18; TEMP 36.2; O2SAT 95
[2021-06-12 05:55] LABS: INR 2.3; Prothrombin Time 25.1 Seconds (11.1-14.7)
[2021-06-12 06:00] VITALS: BP 123/74; PULSE 88; RESP 20; TEMP 36.3; O2SAT 95
[2021-06-12 08:38] VITALS: PULSE 88
[2021-06-12] MEDS: OPTI-GEN TAB 1 TABLET PO ×2 (08:38→17:34)
[2021-06-12] MEDS: FLUTICASONE PROPIONATE 0.05% NA SPR 16 GM BTL (*BKC) 2 SPRAY NASAL (08:38)
[2021-06-12] MEDS: METOPROLOL SUCCINATE EXT REL 50 MG TABCR PO (08:38)
[2021-06-12] MEDS: CARBIDOPA/LEVODOPA 25/100 MG TABLET 1 TABLET PO ×2 (08:38→17:34)
[2021-06-12] MEDS: FUROSEMIDE 20 MG TABLET PO (08:38)
[2021-06-12] MEDS: PROPRANOLOL HCL 20 MG TABLET PO ×2 (08:38→20:35)
[2021-06-12] MEDS: CLOPIDOGREL BISULFATE 75 MG TABLET PO (08:38)
[2021-06-12] MEDS: CYANOCOBALAMIN 250 MCG TABLET PO (08:38)
[2021-06-12] MEDS: PREGABALIN (*CRX) 50 MG CAPSULE PO ×3 (08:44→17:34)
--- NOTE | 2021-06-12 10:08 | PM.PNCARD ---
Progress Note: A&P Assessment and Plan (1) Elevated troponin: Code(s): R77.8 - Other specified abnormalities of plasma proteins Status: Acute Assessment and Plan: Mild elevation of troponins, drawn apparently because of generalized weakness, no acute ischemic EKG changes or typical symptoms in a patient with longstanding heart disease. Likely has some underlying CAD because of the abnormal EKG and the small reversible defect on his Lexiscan a few years ago. Though admitted with weakness I doubt he has ACS or non-STEMI. Echo Shows good left ventricular function. Continue usual cardiac medications: Plavix, statin, beta-cruzito , furosemide and valsartan INR is at goal. Continue warfarin 3mg. Continue current dose of metoprolol. (2) S/p TAVR (transcatheter aortic valve replacement), bioprosthetic: Code(s): Z95.3 - Presence of xenogenic heart valve Status: Acute Assessment and Plan: normal function when checked 07/2019. Echo showed normal Valve function. (3) Atrial fibrillation: Qualifiers: Atrial fibrillation type: persistent (not longstanding) Qualified Code(s): I48.19 - Other persistent atrial fibrillation Code(s): I48.91 - Unspecified atrial fibrillation Status: Acute Assessment and Plan: persistent atrial fibrillation, anticoagulated with warfarin. daily INRs. (4) Weakness: Code(s): R53.1 - Weakness Status: Acute Assessment and Plan: Appears to be due to age and underlying neurologic issue (5) Dementia: Qualifiers: Dementia type: Lewy body dementia Dementia behavioral disturbance: with behavioral disturbance Qualified Code(s): G31.83 - Dementia with Lewy bodies; F02.81 - Dementia in other diseases classified elsewhere with behavioral disturbance Code(s): F03.90 - Unspecified dementia without behavioral disturbance Status: Acute Assessment and Plan: evaluation and treatment per hospitalist Additional Plan No further cardiac evaluation needed at this time. Continue risk factor reduction. Subjective Date/time seen: Cardiology follow up for elevated troponin, AF 06/12/21 10:08 Date of service 06/12/21: Patient very sleepy today. He doesn't have any complaints aside from productive cough. Denies chest pain, shortness of breath. Review of Systems Constitutional: Constitutional: Reports fatigue, Reports lethargy and Reports weakness Eyes: Eyes: Reports no additional eye complaints ENT: Reports system reviewed and no additional complaints, except as documented and Denies epistaxis Cardiovascular: Cardiovascular: Denies chest pain, Denies lightheadedness, Denies dyspnea and Denies dyspnea on exertion Respiratory: Respiratory: Denies dyspnea and Denies dyspnea on exertion Gastrointestinal: Gastrointestinal: Denies abdominal pain Genitourinary: Genitourinary: Denies dysuria Musculoskeletal: Musculoskeletal: Reports no additional musculoskeletal complaints Integumentary/Breasts: Skin/Breast: Reports system reviewed and no additional complaints, except as docu Neurologic: Reports confusion and Reports weakness Psychiatric: Psychiatric: Reports confusion Endocrine: Endocrine: Reports fatigue Exam Narrative: Exam Narrative: Older gentleman laying comfortable in bed. Oriented to person and place. Cooperative. Const: General: comfortable, no acute distress and confusion Orientation/consciousness: confusion HENMT: General nose exam: no epistaxis Mouth: Yes moist mucous membranes Eyes: General: appearance normal, both eyes and all related structures Sclera: sclerae normal Neck: Neck: supple and no JVD Resp: Effort & Inspection: normal respiratory effort Auscultation: clear to auscultation bilaterally Cardi
[2021-06-12 13:58] VITALS: BP 111/79; PULSE 96; RESP 14; TEMP 37.1; O2SAT 96
--- NOTE | 2021-06-12 15:48 | PM.IMPN ---
Progress Note: A&P Assessment and Plan (1) Dementia: Qualifiers: Dementia type: Lewy body dementia Dementia behavioral disturbance: with behavioral disturbance Qualified Code(s): G31.83 - Dementia with Lewy bodies; F02.81 - Dementia in other diseases classified elsewhere with behavioral disturbance Code(s): F03.90 - Unspecified dementia without behavioral disturbance Status: Acute Assessment and Plan: history of Parkinson's disease, peripheral neuropathy and CVA MRI brain 06/10 IMPRESSION: 1. Old infarcts in the cerebellum, right caudate nucleus, and right frontal lobe. 2. Moderate nonspecific cerebral white matter disease, which likely represents chronic small vessel ischemic disease, worsened from 04/11/2018. continue Sinemet Await SNF rehab. may benefit from neurology follow-up as an outpatient PT OT ST (2) Elevated troponin: Code(s): R77.8 - Other specified abnormalities of plasma proteins Status: Acute Assessment and Plan: Mild elevation of troponins with no no acute ischemic EKG changes or typical symptoms in a patient with longstanding heart disease. patient seen by Cardiology and echocardiogram was done past history of TAVR Continue usual cardiac medications: Plavix, statin, beta-cruzito , furosemide and valsartan INR is at goal. Continue warfarin 3mg. Continue current dose of metoprolol. (3) S/p TAVR (transcatheter aortic valve replacement), bioprosthetic: Code(s): Z95.3 - Presence of xenogenic heart valve Status: Acute Assessment and Plan: normal function when checked 07/2019. Echo showed normal Valve function. (4) Atrial fibrillation: Qualifiers: Atrial fibrillation type: persistent (not longstanding) Qualified Code(s): I48.19 - Other persistent atrial fibrillation Code(s): I48.91 - Unspecified atrial fibrillation Status: Acute Assessment and Plan: persistent atrial fibrillation, anticoagulated with warfarin. daily INRs. on metoprolol for rate control (5) Weakness: Code(s): R53.1 - Weakness Status: Acute Assessment and Plan: Appears to be due to age and underlying neurologic issue (6) Hyperlipidemia: Qualifiers: Hyperlipidemia type: mixed hyperlipidemia Qualified Code(s): E78.2 - Mixed hyperlipidemia Code(s): E78.5 - Hyperlipidemia, unspecified Status: Chronic Assessment and Plan: Lipitor (7) Hypertension: Qualifiers: Hypertension type: unspecified Qualified Code(s): I10 - Essential (primary) hypertension Code(s): I10 - Essential (primary) hypertension Status: Chronic Assessment and Plan: was started on propranolol blood pressure in control range (8) BPH (benign prostatic hyperplasia): Qualifiers: Lower urinary tract symptom presence: unspecified whether lower urinary tract symptoms present Qualified Code(s): N40.0 - Benign prostatic hyperplasia without lower urinary tract symptoms Code(s): N40.0 - Benign prostatic hyperplasia without lower urinary tract symptoms Status: Chronic Assessment and Plan: Flomax Additional Plan DVT prophylaxis with Coumadin patient awaits placement at long term facility Subjective Date/time seen: 06/12/21 15:48 patient denies any new complaints today apart from nasal congestion reported by his . he states that he is ready to go to long term facility and is waiting for discharge. Denies any other complaint including shortness of breath chest pain or cough. he sat in chair all day today. All other systems were reviewed and were negative Review of Systems Review of Systems: All systems reviewed & are unremarkable except as noted in HPI and below ( HPI) Exam Narrative: Exam Narrative: General: Pt is alert awake and in NAD Lungs/Chest: T
[2021-06-12] MEDS: WARFARIN (*PBKC) 3 MG TABLET PO (17:34)
[2021-06-12] MEDS: OLANZapine 5 MG TABLET PO (20:34)
[2021-06-12 20:35] VITALS: PULSE 100
[2021-06-12] MEDS: ATORVASTATIN 20 MG TABLET PO (20:35)
[2021-06-12] MEDS: TAMSULOSIN HCL 0.4 MG CAPSULE PO (20:35)
[2021-06-12 22:00] VITALS: BP 137/82; PULSE 101; RESP 22; TEMP 36.2; O2SAT 100
[2021-06-13 05:50] LABS: INR 2.2; Prothrombin Time 23.7 Seconds (11.1-14.7)
[2021-06-13 06:00] VITALS: BP 146/80; PULSE 118; RESP 20; TEMP 36.3; O2SAT 99
[2021-06-13] MEDS: PREGABALIN (*CRX) 50 MG CAPSULE PO ×2 (10:13→12:52)
[2021-06-13 10:14] VITALS: PULSE 118
[2021-06-13] MEDS: FUROSEMIDE 20 MG TABLET PO (10:14)
[2021-06-13] MEDS: OPTI-GEN TAB 1 TABLET PO (10:14)
[2021-06-13] MEDS: CARBIDOPA/LEVODOPA 25/100 MG TABLET 1 TABLET PO (10:14)
[2021-06-13] MEDS: CYANOCOBALAMIN 250 MCG TABLET PO (10:14)
[2021-06-13] MEDS: PROPRANOLOL HCL 20 MG TABLET PO (10:14)
[2021-06-13] MEDS: CLOPIDOGREL BISULFATE 75 MG TABLET PO (10:14)
[2021-06-13] MEDS: METOPROLOL SUCCINATE EXT REL 50 MG TABCR PO (10:14)
[2021-06-13] MEDS: FLUTICASONE PROPIONATE 0.05% NA SPR 16 GM BTL (*BKC) 2 SPRAY NASAL (10:16)
[2021-06-13 13:03] VITALS: BP 107/55; PULSE 95; RESP 16; TEMP 36.6; O2SAT 97
--- NOTE | 2021-06-13 13:19 | PM.DS ---
DS: Admitting Diagnosis Admitting Diagnosis Admitting Diagnosis: generalized weakness DS: Discharge Diagnosis Discharge Diagnosis (1) Dementia: Qualifiers: Dementia behavioral disturbance: with behavioral disturbance Dementia type: Lewy body dementia Qualified Code(s): G31.83 - Dementia with Lewy bodies; F02.81 - Dementia in other diseases classified elsewhere with behavioral disturbance Code(s): F03.90 - Unspecified dementia without behavioral disturbance Status: Acute Assessment and Plan: the patient is an 85-year-old man with a history of aortic valve replacement, Parkinson's disease, dementia, peripheral neuropathy,who presented to the emergency room for complaints of gait instability and generalized weakness. the patient normally walks around the house with a walker but prior to arrival he was unable to get up and walk with his walker. Initial vitals showed he was afebrile, tachycardic at 105, normal oxygenation on room air, blood pressure slightly low at 104/60. Initial labs showed leukocytosis at 12,500, elevated neutrophils 86%, normocytic anemia with a hemoglobin of 11, hematocrit 33%. INR 2.9, on warfarin chronically. Normal CMP other than elevated glucose at 129. Urinalysis showed no acute signs of an infection. COVID swab was negative. Troponin was positive at 0.057, repeat 0.098, repeat 0.108. CT head showed Cerebral atherosclerosis and chronic small vessel ischemic changes of the cerebral white matter. Chronic left basal ganglia lacunar infarct and bilateral chronic cerebellar infarcts. No acute intracranial finding is identified; examination is limited by motion artifact. CXR showed Cardiomegaly, congestion. the patient was admitted into the hospital for generalized weakness, gait instability, elevated troponins, with a cardiology consultation. Cardiology evaluated the patient and felt due to his mild elevation of his troponins and no acute ischemic changes on EKG, they do not believe he is having acute ACS or Non-STEMI. Echocardiogram showed good LV function and recommended continuing Warfarin, Plavix, Statin, Beta-Milka, Lasix and Valsartan/HCTZ was held due to low blood pressures while hospitalized. While here his Afib rate was elevated and was increased to Metoprolol Succinate 50 mg daily. Cardiology will follow up as an outpatient to monitor his Atrial fibrillation rate. while here the patient became more confused and demented. Due to his history of hypnagogic hallucinations followed by memory problems than gait disturbance and shakes then behavior problems is most consistent with Lewy body dementia rather than primary Parkinson's disease or other types of dementia. Carotid Dopplers shows Less than 50 percent stenosis in the right internal carotid artery. Less than 50 percent stenosis in the left internal carotid artery. MRI Brain showed Old infarcts in the cerebellum, right caudate nucleus, and right frontal lobe. Moderate nonspecific cerebral white matter disease, which likely represents chronic small vessel ischemic disease, worsened from 04/11/2018. He had no acute signs of infection. Believed his confusion was from dementia and hospitalization. He is stable at this time and discharging to SNF. The patient is in stable condition. Follow up with PCP. (2) Atrial fibrillation: Qualifiers: Atrial fibrillation type: persistent (not longstanding) Qualified Code(s): I48.19 - Other persistent atrial fibrillation Code(s): I48.91 - Unspecified atrial fibrillation Status: Acute Assessment and Plan: INR 2.2. Continue warfarin at 3 mg , per Cardiology. Recheck INR in 2 days, then once per week at SNF. Follow up with Cardiology for evaluation after discharge and monitor heart rate. (3) S/p TAVR (transcatheter aortic valve replacement), bioprosthetic: Code(s): Z95.3 - Presence of xenogenic heart valve Status: Acute Assessment and Plan: valve
[2021-06-13 13:38] LABS: EDCOVIDSCREEN Negative (Negative)
== END 2021-06-13 15:50 ==
LOC: ANHED 16:52 → ANHIMU 18:52 → ANH2MED 06-10 21:29
PROVIDERS: Emergency Medicine; Internal Medicine; Nurse Practitioner; Physician Assistant; Admitting Provider Internal Medicine; Emergency Provider Emergency Medicine; PCP Family Medicine; Visit Provider Internal Medicine
DX: G31.83 Neurocognitive disorder with Lewy bodies (principal); F02.80 Dementia in other diseases classified elsewhere, unspecified severity, without behavioral disturbance, psychotic disturbance, mood disturbance, and anxiety; R26.81 Unsteadiness on feet; I48.20 Chronic atrial fibrillation, unspecified; R53.1 Weakness; R77.8 Other specified abnormalities of plasma proteins; I10 Essential (primary) hypertension; E78.5 Hyperlipidemia, unspecified; I48.91 Unspecified atrial fibrillation; I65.23 Occlusion and stenosis of bilateral carotid arteries; E03.9 Hypothyroidism, unspecified; R94.6 Abnormal results of thyroid function studies; D64.9 Anemia, unspecified; G62.9 Polyneuropathy, unspecified; N40.0 Benign prostatic hyperplasia without lower urinary tract symptoms; Z95.3 Presence of xenogenic heart valve; H40.9 Unspecified glaucoma; Z79.01 Long term (current) use of anticoagulants; Z86.73 Personal history of transient ischemic attack (TIA), and cerebral infarction without residual deficits; Z20.822 Contact with and (suspected) exposure to COVID-19
CPT/HCPCS: 36415; 70450; 70553; 71046; 80048; 80053; 81001; 82607; 82746; 82948; 83605; 83615; 83735; 83880; 84145; 84439; 84443; 84480; 84484; 85025; 85380; 85610; 85652; 86140; 87040; 87426; 92611; 93005; 93306; 93880; 96372; 96374; 96375; 97110; 97161; 97166; 97530; 97535; 99285; A9270; A9577; C9803; G0378; J1630; J2405; U0003; U0005

== ENCOUNTER 2021-09-18 12:50 | Outpatient (CLI) | payer MEDICARE, SELFPAY ==
--- NOTE | ~2021-09-18 | XR_ITS ---
EXAMINATION: [id number] INDICATION: Pleurodynia TECHNIQUE: A frontal view of the chest and 3 views of the right ribs were obtained. COMPARISON: None. FINDINGS: The lungs are free of acute opacities. No pleural effusion or pneumothorax is identified. C ardiomegaly is noted. There are changes of prior cardiac surgery. No definitely displaced right-sided rib fracture is identified. There is an old left sixth rib fracture. IMPRESSION: 1. No acute cardiopulmonary abnormality or evidence of displaced right rib fracture. Reviewed, dictated and finalized at location A. IMPRESSION: 1. No acute cardiopulmonary abnormality or evidence of displaced right rib frac ture.
== END 2021-09-18 12:51 | disposition home or self-care (01) ==
LOC: ANHLAB 12:54
PROVIDERS: PCP Family Medicine; Visit Provider Family Medicine
DX: R07.81 Pleurodynia (principal); Z20.822 Contact with and (suspected) exposure to COVID-19
CPT/HCPCS: 71101

== ENCOUNTER 2022-02-23 10:19 | Outpatient (CLI) | payer MEDICARE, SELFPAY | END 2022-02-23 10:20 | disposition home or self-care (01) | LOC: ANHAUDIO 10:21 | PROVIDERS: PCP Family Medicine; Visit Provider Family Medicine | DX: H91.90 Unspecified hearing loss, unspecified ear (principal) | CPT/HCPCS: 99199 ==

== ENCOUNTER 2022-03-21 10:45 | Outpatient (CLI) | payer MEDICARE, SELFPAY | END 2022-03-21 10:46 | disposition home or self-care (01) | LOC: ANHAUDIO 10:46 | PROVIDERS: PCP Family Medicine; Visit Provider Family Medicine | DX: H91.90 Unspecified hearing loss, unspecified ear (principal) | CPT/HCPCS: 92557; 92567 ==

== ENCOUNTER → 2022-05-24 10:19 | Outpatient (CLI) | payer MEDICARE, SELFPAY ==
--- NOTE | ~2022-05-24 | XR_ITS ---
EXAMINATION: XR hip LT 2V w AP pelvis INDICATION: Left hip pain TECHNIQUE: AP view the pelvis and two views of the left hip are obtained. COMPARISON: None available FINDINGS: Bone alignment is normal. There is no fracture. There is moderate osteoarthritis of the hip s. Vertebroplasty change is noted in the lumbar spine. There is calcified atherosclerosis. IMPRESSION: 1. Moderate osteoarthritis of the hips. Reviewed, dictated and finalized at location F.
== END ==
PROVIDERS: PCP Family Medicine; Visit Provider Physician Assistant
DX: M16.0 Bilateral primary osteoarthritis of hip (principal)
CPT/HCPCS: 73502

== ENCOUNTER → 2022-05-31 13:05 | Outpatient (CLI) | payer MEDICARE, SELFPAY ==
--- NOTE | ~2022-05-31 | CT_ITS ---
EXAMINATION: CT lumbar spine wo con DATE: 05/31/2022 13:45 INDICATION: Lumbar spinal stenosis TECHNIQUE: Computed tomography (CT) of the lumbar spine was performed without intravenous contrast. A utomated exposure control and iterative reconstruction technique were employed. The dose-length produ ct was 930.57 mGy-cm. COMPARISON: Lumbar spine radiographs dated 07/29/2019 FINDINGS: Diffuse osteopenia in the spine and visualized pelvis. 2 mm anterolisthesis L1 on L2, L2 on L3, 3 mm anterolisthesis L3 on L4, 102 mm anterolisthesis L4 on L5 and 3 mm retrolisthesis L5 on S1. Interval progression of a chronic L2 burst fracture with two thirds central vertebral body height loss anterio r and lateral expansion of the vertebral body and change of prior vertebroplasty. L3 compression frac ture with mild depression of the posterior aspect of the superior endplate and additional prior verte broplasty relatively acute appearing L4 compression fracture with one third central vertebral body he ight loss and horizontal lucent fracture plane underlying the depressed superior endplate. Chronic ap pearing mild central endplate compression fracture at the inferior endplate of L5. Severe disc height loss at L4-L5. Moderate disc height loss at L5-S1. Mild disc height loss at T12. There is ballooning of the central disc space at L1-L2 through L3-L4 resulting from the previously noted compression and burst fractures. There is dystrophic soft tissue calcifications along the interspinous ligaments as well as about the peripheral and central canal sides of the facet joints throughout the lumbar spine. Additional small amount of dystrophic calcification at the periphery of the thecal sac at level of S 1 and S2. Mild bilateral sacroiliac osteoarthritis. There is some likely postoperative scarring in th e posterior paraspinal soft tissues to the right of the L3 spinous process. The following disc levels are specifically discussed: T11-T12: Disc is mildly bulging. There is mild bilateral facet joint osteoarthritis. There is minimal bilateral neural foraminal stenosis. There is mild central canal stenosis. T12-L1: Disc is mildly bulging. There is mild right and moderate left facet joint osteoarthritis. The re is mild bilateral neural foraminal stenosis. There is minimal central canal stenosis. L1-L2: Disc is bulging and there is 2 mm retropulsion along the superior endplate of L2. There is mil d left and moderate right facet joint osteoarthritis. There is mild to moderate left and moderate to severe right neural foraminal stenosis. There is severe central canal stenosis. L2-L3: Disc is bulging. There is mild to moderate bilateral facet joint osteoarthritis. There is mode rate left and moderate to severe right neural foraminal stenosis. There is severe central canal steno sis. L3-L4: Disc is bulging. There is moderate right and moderate to severe left facet joint osteoarthriti s. There is are bilateral, right greater than left. neural foraminal stenosis. There is moderate cent ral canal stenosis with right sided hemilaminotomy for decompression. L4-L5: Disc is bulging. There is severe bilateral facet joint osteoarthritis. There is moderate bilat eral neural foraminal stenosis. There is moderate central canal stenosis. L5-S1: Disc is mildly bulging. There is moderate bilateral facet joint osteoarthritis. There is mild bilateral, right greater than left neural foraminal stenosis. There is no central canal stenosis. IMPRESSION: 1. Relatively acute appearing L1 superior endplate compression fracture with one third central verteb ral body height loss. 2. Chronic L2 burst fracture and L3 compression fractures, both with change of prior vertebroplasty. 3. Severe lumbar spondylosis with prominent dystrophic calcifications in the posterior paraspinal sof t tissues with multilevel moderate to severe central canal and bilatera
== END ==
PROVIDERS: PCP Family Medicine; Visit Provider Physician Assistant
DX: M48.062 Spinal stenosis, lumbar region with neurogenic claudication (principal); M85.88 Other specified disorders of bone density and structure, other site; M47.26 Other spondylosis with radiculopathy, lumbar region
CPT/HCPCS: 72131

== ENCOUNTER 2022-06-27 09:20 | Inpatient (IN) | payer MEDICARE, SELFPAY ==
[2022-06-27] VITALS (8 sets, daily range): BP systolic 113–145; BP diastolic 48–86; PULSE 72–105; RESP 16–20; TEMP 36.2–36.9; O2SAT 92–97
--- NOTE | ~2022-06-27 | XR_ITS ---
XR chest 2V 06/27/2022 10:19 Indication: Cough Procedure: 2 view chest Comparison: 06/07/2021 Findings: There is bilateral airspace disease. Status post median sternotomy for CABG. There is a pro sthetic aortic valve replacement. Cardiomegaly. There are lumbar compression deformities with vertebr oplasty changes. Impression: 1: Bilateral airspace disease, left greater than right, consistent with pneumonia. Asymmetric edema l ess favored. 2: Cardiomegaly. Reviewed, dictated and finalized at location A. Impression: 1: Bilateral airspace disease, left greater than right, consistent with pneumon ia. Asymmetric edema less favored. 2: Cardiomegaly.
--- NOTE | ~2022-06-27 | XR_ITS ---
EXAMINATION: XR chest 1V portable DATE: 07/02/2022 05:47 INDICATION: COVID-19 pneumonia. TECHNIQUE: A single frontal view of the chest was obtained. COMPARISON: Chest 2 views 06/27/2022 FINDINGS: There are mild airspace opacities in left mid and lower lung zones. No pleural effusion or pneumothorax. Cardiomegaly is noted. There are changes of aortic valve replacement. Median sternotomy wires and mediastinal surgical clips are seen, likely from prior coronary artery bypass grafting. Th ere are surgical clips in the abdomen. There is an old healed left rib fracture. IMPRESSION: 1. Airspace opacities in left mid and lower lung zones with interval improvement, consistent with ate lectasis versus pneumonia. 2. Cardiomegaly. Reviewed, dictated and finalized at location A. IMPRESSION: 1. Airspace opacities in left mid and lower lung zones with interval improvemen t, consistent with atelectasis versus pneumonia. 2. Cardiomegaly.
--- NOTE | ~2022-06-27 | CT_ITS ---
EXAMINATION: CT brain wo con DATE: 06/27/2022 12:29 INDICATION: Confusion TECHNIQUE: Computed tomography (CT) of the head was performed without intravenous contrast. The mA wa s adjusted according to patient size. Iterative reconstruction technique was employed. Exam dose: 68 1.00 mGy-cm total exam DLP. COMPARISON: None FINDINGS: Bilateral vertebral artery, basilar artery and prominent bilateral carotid siphon and supra clinoid internal carotid artery calcifications are noted. There is nonspecific diminished attenuation of the subcortical and periventricular cerebral white matter, likely due to chronic small vessel isc hemic changes. No intracranial mass lesion or hemorrhage or cerebrovascular accident is detected. No midline shift o r mass effect effect. There is central and cortical cerebral atrophy. No subdural or epidural hematoma is detected. No fracture or bone destruction of the cranial vault. There is mild echograms thickening of the right maxillary sinus and patchy opacification of right eth moid air cells, mild soft tissue thickening of the left ethmoid air cells, minimal mucoperiosteal thi ckening of the sphenoid sinuses. The mastoid air cells are normally developed and aerated. IMPRESSION: Cerebral atherosclerosis and chronic small vessel ischemic changes of the cerebral white matter Central and cortical cerebral atrophy No acute intracranial finding Reviewed, dictated and finalized at Location A. Reviewed, dictated and finalized at location A.
--- NOTE | 2022-06-27 09:28 | ECG_ITS ---
Measurements Intervals Boles Rate: 92 P: NV: 0 QRS: -74 QRSD: 172 T: 22 QT: 394 QTc: 489 Interpretive Statements ATRIAL FIBRILLATION VENTRICULAR PREMATURE COMPLEX LEFT AXIS DEVIATION RIGHT BUNDLE BRANCH BLOCK INFERIOR INFARCT, AGE INDETERMINATE BASELINE ARTIFACT- II, III ABNORMAL ECG Electronically Signed On 06-27-2022 10:38:58 CDT by Luis Rosa D.O.
[2022-06-27 09:53] LABS: Appearance Urine Clear (Clear); Bilirubin Urine Negative (Negative); Blood Urine Negative (Negative); Color Urine Yellow (Yellow); Glucose Urine UA Negative (Negative); Ketones Urine Negative (Negative); Leukocyte Esterase Ur Negative LEU/UL (Negative); Nitrate Urine Negative (Negative); Protein Urine Negative (Negative); Specific Grav Ur 1.015 (1.001-1.035); Urobilinogen Urine 0.2 mg/dL (<2.0)
--- NOTE | 2022-06-27 09:53 | ED.AMS ---
HPI - Altered Mental Status General Chief Complaint: Altered Mental Status Stated Complaint: AMS Time Seen by Provider: 06/27/22 09:48 History of Present Illness HPI narrative: Pt sent to ED for altered mental status from home. Pt has mild dry cough for tow weeks but no fever or SOB. Pt has some chronic back pain which is unchanged and not bothering him at the moment. Pt really not sure why he is here. Related Data Home Medications Medication Instructions Recorded Confirmed cyanocobalamin (vitamin B-12) 100 100 mcg PO DAILY 12/04/19 04/25/22 mcg tablet vit C 250 mg-vit E 90 mg-zinc 40 1 tablet PO BID 12/04/19 04/25/22 mg-copper 1 [id number] capsule (PreserVision AREDS-2) Allergies Allergy/AdvReac Type Severity Reaction Status Date / Time Sseztpp-RVM-RvH Reductase Allergy Mild SWELLING Verified 04/25/22 11:06 Inhibitor [Sjoznie-Erj-Sco Reductase Inhibitor] simvastatin Allergy Unknown Swelling Verified 04/25/22 11:06 Review of Systems Review of Systems: All systems reviewed & are unremarkable except as noted in HPI and below PMFSH Past Medical History Medical History (Updated 06/27/22 @ 11:35 by Oliva Diggs III, DO) Anemia, unspecified Arthritis Atrial fibrillation BPH (benign prostatic hyperplasia) Chronic anticoagulation CVA (cerebral vascular accident) Gait instability Glaucoma Hematochezia Hyperlipidemia Hypertension Neuropathy Obesity Parkinson disease Peripheral neuropathy PND (post-nasal drip) Upper extremity weakness Surgical History Surgical History S/P AVR S/p TAVR (transcatheter aortic valve replacement), bioprosthetic October 2016 Family History Family History Father Family history of cardiovascular disease Mother Dementia Sibling Dementia Social History Social History Social History: the patient lives with his who is a durable power civil litigation attorney for healthcare. The patient is listed as a full code. However he thinks that he may be leaning towards a DNR. the patient has 2 children and lives with his . 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 The patient stated that he tried to smoke at 1 time when he was young kid but otherwise he did smoke at all and he does not use any alcohol marijuana illicit drugs. Smoking status: Never smoker Second hand tobacco smoke exposure: No Additional smoking assessment comments: spouse wasn't sure on how many packs per day Alcohol intake: never Substance use: never Substance use type: does not use Gender identity (if verbalized by the patient): Male Sexual Orientation (if Verbalized by the Patient): Straight or Heterosexual Spiritual care concerns: No Exam Const: General: healthy appearing Nutritional Appearance: well nourished Orientation/consciousness: patient oriented x3 Limitations: no limitations HENMT: Head: normal to inspection Mouth: Yes Normal oral and palatal mucosa present Eyes: Conjunctivae: conjunctivae normal EOM: EOMs intact bilaterally Neck: Neck: normal visual inspection, no lymphadenopathy and no meningeal signs Resp: Effort & Inspection: normal respiratory effort Auscultation: clear to auscultation bilaterally Cardio: Rate: regular rate Rhythm: abnormal rhythm (irregular) GI: GI Palp: Yes Soft to palpation Auscultation: normal bowel sounds Skin: General skin exam: normal color Rashes: no rashes Wounds: no wounds Neuro: General: patient oriented x3 and moves all extremities Cranial nerves: Yes Nystagmus not present Speech: normal speech Extrem: General: normal to inspection and no clubbing, cyanosis or edema Psych: Mental Status: mental status grossly normal Affect: normal affect Attitude: cooperative Course Vital Signs Vital signs: Vital Signs Temperature 97.6 F 06/27/22 09:19 Pul
[2022-06-27 09:55] LABS: Basophils Percent Auto 0.2 % (0.2-1.2); Eosinophils Absolute Auto 0.1 K/mm3 (0-0.3); Eosinophils Percent Auto 1.1 % (0-4.4); Hematocrit 30.3 % (42.0-52.0); Hemoglobin 10.2 g/dL (14.0-18.0); Immature Granulocyte Absolute 0.11 K/mm3 (0.00-0.031); Immature Granulocyte Percent A 1.2 % (0-0.5); Immature Platelet Fraction Pct 8.7 % (0.9-11.2); Lymphocytes Absolute Auto 0.37 K/mm3 (0.9-3.2); Lymphocytes Percent Auto 3.9 % (18.3-44.2); Mean Corpuscular HGB Conc 33.7 g/dl (32-36); Mean Corpuscular Hemoglobin 31.7 pg (26-34); Mean Corpuscular Volume 94.1 fl (80-100); Mean Platelet Volume 11.3 fl (7.4-10.4); Monocytes Absolute Auto 1.2 K/mm3 (0.1-0.6); Monocytes Percent Auto 12.2 % (2.6-8.5); Neutrophils Absolute Auto 7.7 K/mm3 (1.3-6.7); Neutrophils Percent Auto 81.4 % (45.5-73.1); Platelet Count Result 116 k/mm3 (150-375); Red Blood Count 3.22 M/mm3 (4.6-6.20); Red Cell Distribution Width 17.2 % (11.5-14.5); White Blood Count 9.5 K/mm3 (4.5-10.0)
[2022-06-27 10:02] LABS: Alanine Aminotransferase 15 U/L (6-50); Albumin Level 4.2 g/dL (3.5-5.1); Alkaline Phosphatase 95 U/L (38-126); Anion Gap 10 mmol/L (8-16); Aspartate Amino Transferase 19 U/L (17-59); Bilirubin,Total 0.7 mg/dL (0.2-1.3); Blood Urea Nitrogen 34 mg/dL (9-20); Carbon Dioxide 26 mmol/L (22-30); Chloride 102 mmol/L (98-107); Estimated CRCL calculation 49 ml/min; Estimated Glomerular Filt Rate > 60; Glucose 114 mg/dL (65-110); Potassium 4.7 mmol/L (3.4-5.0); Sodium 138 mmol/L (137-145)
[2022-06-27 10:03] LABS: Prothrombin Time 48.8 Seconds (11.1-14.7)
[2022-06-27 10:14] LABS: Hypochromasia 1+ (NORMAL); Platelet Estimate Adequate (Adequate)
[2022-06-27 10:15] LABS: Anisocytosis 1+ (NORMAL); Hyperchromasia 1+ (NORMAL); Macrocytosis 1+ (NORMAL); Ovalocytes 1+ (NORMAL); Poikilocytosis 1+ (NORMAL); Stomatocytes 1+ (NORMAL); Target Cells 1+ (NORMAL)
[2022-06-27 10:20] LABS: Add Urine Microscopic? NO
[2022-06-27 10:28] LABS: INR 5.6
[2022-06-27 10:41] LABS: Lactic Acid Reflex 0.8 mmol/L (0.7-2.0)
[2022-06-27 10:48] LABS: SARS-CoV-2 RNA PCR Positive
--- NOTE | 2022-06-27 12:01 | PM.IMHP ---
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 History obtained from via telephone. says patient was up all night with cough and runny nose. She gave him robitussin, which was not helpful. She tested him for COVID19 yesterday and the test was negative. also says he kept saying he had to go to the bathroom all night but by the time she got up to help him go to the bathroom he would say never mind. She denies fevers, chills, congestion and sore throat. Also says patient has reported poor appetite for the past few weeks saying he had no desire to eat. says she called EMS this morning after she found him around 0830 not responding to much . She say she he would not lift his head and she could not lift his head, so she called EMS. She reports he mentioned having a headache last night. In the emergency department, COVID19 positive, CXR concerning for pneumonia with bilateral opacities with left greater than right, INR 5.6, ceftriaxone and azithromycin given. 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 The patient is listed as a full code. However he thinks that he may be leaning towards a DNR. the patient has 2 children and lives with his . 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 The patient stated that he tried to smoke at 1 time when he was young kid but otherwise he did smoke at all and he does not use any alcohol marijuana illicit drugs. 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 Gender identity (if verbalized by the patient): Male Sexual Orientation (if Verbalized by the Patient): Straight or Heterosexual Spiritual care concerns: No Meds Home Medications and Allergies Home Medications Medication Instructions Recorded Confirmed Type cyanocobalamin (vitamin B-12) 100 100 mcg PO DAILY 12/04/19 06/27/22 History mcg tablet vit C 250 mg-vit E 90 mg-zinc 40 1 tablet PO BID 12/04/19 06/27/22 History mg-copper 1 [id number] capsule (PreserVision AREDS-2) nitroglycerin 0.4 mg sublingual 0.4 mg sublingual Q5M PRN chest 10/07/20 06/27/22 Rx tablet pain #50 tabs acetaminophen 325 mg tablet (Mapap 650 mg PO Q4H PRN Mild Pain (1-3) 06/13/21 06/27/22 Rx (acetaminophen)) Or Fever #30 tabs metoprolol succinate 50 mg 50 mg PO DAILY #90 tabs 11/13/21 06/27/22 Rx tablet,extended release 24 hr valsartan 80 1 table
[2022-06-27 14:21] LABS: Ammonia < 9 umol/L (9-30)
[2022-06-27 15:05] LABS: Procalcitonin 0.2 ng/mL
[2022-06-27 15:08] LABS: Free T4 Free Thyroxine 1.19 ng/mL (0.78-2.19)
--- NOTE | 2022-06-27 15:29 | ADMGEN ---
This patient, Candice Marin, was admitted to [facility] Surg Room 333-01. Report received from Christina Carrillo. Patient/family oriented to hospital policies and general routines including ID bracelet, bed and alarms, visiting hours, pain management, procedures, bathroom and other care routines, personal items, smoking policy, room service/diet, and visiting hours. Information on how to activate the Rapid Response Team has been discussed. Patient/Family are encouraged to report perceived risks to care and to ask questions if they do not understand what they are told or what they should do.
[2022-06-27] MEDS: ATORVASTATIN 20 MG TABLET PO (20:40)
[2022-06-27] MEDS: DULoxetine HCL 30 MG CAPSULE.DR PO (20:40)
[2022-06-27] MEDS: TAMSULOSIN HCL 0.4 MG CAPSULE PO (20:40)
[2022-06-27] MEDS: METOPROLOL SUCCINATE EXT REL 50 MG TABCR PO (20:41)
[2022-06-27] MEDS: ACETAMINOPHEN 325 MG TABLET 650 MG PO (23:37)
[2022-06-28] VITALS (9 sets, daily range): BP systolic 94–143; BP diastolic 52–90; PULSE 61–102; RESP 16–18; TEMP 36.2–37; O2SAT 94–100; BMI 29.0
[2022-06-28 06:44] LABS: Basophils Percent Auto 0.3 % (0.2-1.2); Eosinophils Percent Auto 0.3 % (0-4.4); Hematocrit 29.2 % (42.0-52.0); Hemoglobin 9.4 g/dL (14.0-18.0); Immature Granulocyte Absolute 0.08 K/mm3 (0.00-0.031); Immature Granulocyte Percent A 1.3 % (0-0.5); Immature Platelet Fraction Pct 8.7 % (0.9-11.2); Lymphocytes Absolute Auto 0.52 K/mm3 (0.9-3.2); Lymphocytes Percent Auto 8.3 % (18.3-44.2); Mean Corpuscular HGB Conc 32.2 g/dl (32-36); Mean Corpuscular Hemoglobin 30.8 pg (26-34); Mean Corpuscular Volume 95.7 fl (80-100); Mean Platelet Volume 11.9 fl (7.4-10.4); Monocytes Absolute Auto 1.1 K/mm3 (0.1-0.6); Monocytes Percent Auto 16.7 % (2.6-8.5); Neutrophils Absolute Auto 4.6 K/mm3 (1.3-6.7); Neutrophils Percent Auto 73.1 % (45.5-73.1); Platelet Count Result 104 k/mm3 (150-375); Red Blood Count 3.05 M/mm3 (4.6-6.20); Red Cell Distribution Width 17.2 % (11.5-14.5); White Blood Count 6.3 K/mm3 (4.5-10.0)
[2022-06-28 07:03] LABS: Anion Gap 10 mmol/L (8-16); Blood Urea Nitrogen 30 mg/dL (9-20); Calcium 8.6 mg/dL (8.4-10.2); Carbon Dioxide 23 mmol/L (22-30); Chloride 102 mmol/L (98-107); Estimated CRCL calculation 52 ml/min; Estimated Glomerular Filt Rate > 60; Glucose 109 mg/dL (65-110); Potassium 4.2 mmol/L (3.4-5.0); Sodium 135 mmol/L (137-145)
[2022-06-28 07:25] LABS: Rapid Plasma Reagin Non-Reactive (NonReactive)
[2022-06-28 07:27] LABS: Prothrombin Time 46.2 Seconds (11.1-14.7)
--- NOTE | 2022-06-28 07:38 | PM.IMPN ---
Progress Note: A&P Assessment and Plan (1) Altered mental status: Code(s): R41.82 - Altered mental status, unspecified Status: Acute Assessment and Plan: May be related to COVID19 illness versus pneumonia. May have some underlying dementia. CT head w/ no acute intracranial findings. Thyroid labs normal. RPR negative. Ammonia undetectable. Appears to have improved and is more talkative and responding appropriately to questions. -Hold sedating medications - duloxetine and carbidopa-levodopa (2) COVID-19: Code(s): U07.1 - COVID-19 Status: Acute Assessment and Plan: On room air with adequate oxygenation will defer dexamethasone and remdeisivr at this time. (3) Supratherapeutic INR: Code(s): R79.1 - Abnormal coagulation profile Status: Acute Assessment and Plan: INR 5.2 -Hold warfarin (4) Pneumonia: Code(s): J18.9 - Pneumonia, unspecified organism Status: Acute Assessment and Plan: CXR with bilateral lung opacities with left greater than right. Due to age and comorbidities will treat for bacterial pneumonia at this time. Procalcitonin 0.2. -Ceftriaxone and azithromycin (5) Atrial fibrillation: Qualifiers: Atrial fibrillation type: persistent (not longstanding) Qualified Code(s): I48.19 - Other persistent atrial fibrillation Code(s): I48.91 - Unspecified atrial fibrillation Status: Acute Assessment and Plan: Takes warfarin at home and metoprolol. Holding warfarin due to it beign supratheraputic. Continue mteoprolol. (6) S/p TAVR (transcatheter aortic valve replacement), bioprosthetic: Code(s): Z95.3 - Presence of xenogenic heart valve Status: Acute Assessment and Plan: Unclear if this is true. stated the patient had a mechanical valve and was on warfarin with a goal INR of 2.5-3.5 and plavix for this. Called to clarify and left voicemail. INR still supratheraputic. -Hold warfarin -Hold plavix (7) Hypertension: Qualifiers: Hypertension type: unspecified Qualified Code(s): I10 - Essential (primary) hypertension Code(s): I10 - Essential (primary) hypertension Status: Chronic Assessment and Plan: Takes metoprolol and valsartan-hydrochlorothiazide at home. Continue home medication. (8) Hyperlipidemia: Qualifiers: Hyperlipidemia type: mixed hyperlipidemia Qualified Code(s): E78.2 - Mixed hyperlipidemia Code(s): E78.5 - Hyperlipidemia, unspecified Status: Chronic Assessment and Plan: Takes atorvastatin 20 mg at home. Continue home medications. (9) BPH (benign prostatic hyperplasia): Qualifiers: Lower urinary tract symptom presence: unspecified whether lower urinary tract symptoms present Qualified Code(s): N40.0 - Benign prostatic hyperplasia without lower urinary tract symptoms Code(s): N40.0 - Benign prostatic hyperplasia without lower urinary tract symptoms Status: Chronic Assessment and Plan: Takes tamsulosin at home. Continue home medication. (10) Parkinson disease: Code(s): G20 - Parkinson's disease Status: Chronic Assessment and Plan: Takes carbidopa-levadopa at home. Holding due to sedating properties. (11) Gait instability: Code(s): R26.81 - Unsteadiness on feet Status: Acute Assessment and Plan: PT/OT consulted. Subjective Date/time seen: 06/28/22 07:38 Patient denies having any difficulty breathing but says he has some postnasal drip. Review of Systems Respiratory: Respiratory: Denies dyspnea Exam Narrative: GENERAL: NAD, cooperative HEENT: Normocephalic, atraumatic, anicteric NECK:Supple CV: Normal S1, S2, RRR, No MRG RESP: CTAB, Normal work of breathing. EXTREMITIES: Warm and well perfused, no clubbing, cyanosis, or edema. SKIN: warm, dry and intac
[2022-06-28 07:45] LABS: INR 5.2
[2022-06-28] MEDS: FLUTICASONE PROPIONATE 0.05% NA SPR 16 GM BTL (*BKC) 2 SPRAY NASAL (08:04)
[2022-06-28] MEDS: OPTI-GEN TAB 1 TABLET PO ×2 (08:04→17:16)
[2022-06-28] MEDS: VALSARTAN 80 MG TABLET PO (08:06)
[2022-06-28] MEDS: FUROSEMIDE 20 MG TABLET PO (08:06)
[2022-06-28] MEDS: METOPROLOL SUCCINATE EXT REL 50 MG TABCR PO (08:06)
[2022-06-28] MEDS: hydroCHLOROthiazide 12.5 MG CAPSULE PO (08:06)
--- NOTE | 2022-06-28 16:28 | PCPTNOTE ---
Patient found with LE hanging out of bed. Attempted PT evaluation, patient resisting assist/refusing to participate. BOAT FINISHER and RN deedee into room to assist with bed mobility/perineal care due to patient having bowel movement. Will Follow.
[2022-06-28] MEDS: ACETAMINOPHEN 325 MG TABLET 650 MG PO (17:12)
[2022-06-28] MEDS: TAMSULOSIN HCL 0.4 MG CAPSULE PO (21:04)
[2022-06-28] MEDS: ATORVASTATIN 20 MG TABLET PO (21:04)
[2022-06-29] VITALS (9 sets, daily range): BP systolic 120–150; BP diastolic 52–90; PULSE 72–99; RESP 16–18; TEMP 36.2–36.9; O2SAT 94–100
[2022-06-29 06:31] LABS: Basophils Percent Auto 0.3 % (0.2-1.2); Eosinophils Absolute Auto 0.1 K/mm3 (0-0.3); Eosinophils Percent Auto 1.1 % (0-4.4); Hematocrit 31.6 % (42.0-52.0); Hemoglobin 10.2 g/dL (14.0-18.0); Immature Granulocyte Absolute 0.07 K/mm3 (0.00-0.031); Immature Granulocyte Percent A 1.1 % (0-0.5); Lymphocytes Absolute Auto 0.68 K/mm3 (0.9-3.2); Lymphocytes Percent Auto 11.1 % (18.3-44.2); Mean Corpuscular HGB Conc 32.3 g/dl (32-36); Mean Corpuscular Hemoglobin 30.4 pg (26-34); Mean Platelet Volume 12.3 fl (7.4-10.4); Monocytes Percent Auto 16.8 % (2.6-8.5); Neutrophils Absolute Auto 4.3 K/mm3 (1.3-6.7); Neutrophils Percent Auto 69.6 % (45.5-73.1); Platelet Count Result 115 k/mm3 (150-375); Red Blood Count 3.36 M/mm3 (4.6-6.20); Red Cell Distribution Width 16.8 % (11.5-14.5); White Blood Count 6.1 K/mm3 (4.5-10.0)
[2022-06-29 06:41] LABS: INR 4.1; Prothrombin Time 38.8 Seconds (11.1-14.7)
[2022-06-29 07:00] LABS: Alanine Aminotransferase 16 U/L (6-50); Albumin Level 3.8 g/dL (3.5-5.1); Alkaline Phosphatase 90 U/L (38-126); Anion Gap 10 mmol/L (8-16); Aspartate Amino Transferase 26 U/L (17-59); Bilirubin,Total 0.7 mg/dL (0.2-1.3); Blood Urea Nitrogen 27 mg/dL (9-20); Calcium 8.8 mg/dL (8.4-10.2); Carbon Dioxide 23 mmol/L (22-30); Chloride 101 mmol/L (98-107); Estimated CRCL calculation 52 ml/min; Estimated Glomerular Filt Rate > 60; Glucose 98 mg/dL (65-110); Potassium 4.3 mmol/L (3.4-5.0); Sodium 134 mmol/L (137-145)
--- NOTE | 2022-06-29 08:13 | PM.DS ---
DS: Summary Time Spent with Patient Time attestation: Total time spent providing and/or coordinating discharge services: DS: Data Data Completed and Pending Labs on day of discharge: Labs from last 24 hours 06/29/22 06/29/22 06/29/22 06:14 06:14 06:14 WBC 6.1 RBC 3.36 L Hgb 10.2 L Hct 31.6 L MCV 94.0 MCH 30.4 MCHC 32.3 RDW 16.8 H Plt Count 115 L MPV 12.3 H Immature Gran % (Auto) 1.1 H Neut % (Auto) 69.6 Lymph % (Auto) 11.1 L [place] % (Auto) 16.8 H Eos % (Auto) 1.1 Baso % (Auto) 0.3 Lymph # (Auto) 0.68 L [place] # (Auto) 1.0 H Eos # (Auto) 0.1 Baso # (Auto) 0.0 Abs Immat Gran (auto) 0.07 H Absolute Neuts (auto) 4.3 Absolute Nucleated RBC 0.0 Nucleated RBC % 0.0 PT 38.8 H INR 4.1 Sodium 134 L Potassium 4.3 Chloride 101 Carbon Dioxide 23 Anion Gap 10 BUN 27 H Creatinine 0.90 Estim Creat Clear Calc 52 Estimated GFR > 60 Glucose 98 Calcium 8.8 Total Bilirubin 0.7 AST 26 ALT 16 Alkaline Phosphatase 90 Total Protein 7.0 Albumin 3.8 Discharge Plan Discharge Patient Instructions: Safe Use of Anticoagulants (DC) Discharge Medications: No Action PreserVision AREDS-2 [id number] me-vmiq-sa-mg capsule 1 tablet PO BID cyanocobalamin (vitamin B-12) 100 mcg tablet 100 mcg PO DAILY carbidopa-levodopa 25-100 mg tablet 1 tablet PO BID Qty: 180 3RF atorvastatin [Lipitor] 20 mg tablet 20 mg PO HS Qty: 90 3RF clopidogrel 75 mg tablet 75 mg PO DAILY Qty: 90 3RF tamsulosin [Flomax] 0.4 mg capsule 0.4 mg PO HS Qty: 90 3RF acetaminophen [Mapap (acetaminophen)] 325 mg Tablet 650 mg PO Q4H PRN (Reason: Mild Pain (1-3) Or Fever) Qty: 30 0RF warfarin 5 mg tablet 5 mg PO DAILY duloxetine 30 mg capsule,delayed release(DR/EC) 30 mg PO HS nitroglycerin 0.4 mg tablet, sublingual 0.4 mg sublingual Q5M PRN (Reason: chest pain) Qty: 50 0RF Rx Instructions: do not exceed 3 doses per episode metoprolol succinate 50 mg tablet extended release 24 hr 50 mg PO DAILY Qty: 90 3RF valsartan-hydrochlorothiazide 80-12.5 mg tablet 1 tablet PO DAILY Qty: 90 3RF Hold Instructions: Continue holding. BP has been well controlled without this medication. Continue checking BP and if elevated consider restarting. Follow up with PCP furosemide 20 mg tablet 20 mg PO DAILY Qty: 90 2RF fluticasone propionate 50 mcg/actuation spray,suspension 2 spray NASAL DAILY Qty: 15.8 5RF pregabalin [Lyrica] 50 mg capsule 50 mg PO TID Qty: 90 5RF Date of admission: 06/28/22 16:03 Primary Care Provider: Florentino Arnold Admitting Provider: Connie Chávez Attending physician on admission: Connie Chávez Condition: Stable
[2022-06-29] MEDS: VALSARTAN 80 MG TABLET PO (09:50)
[2022-06-29] MEDS: METOPROLOL SUCCINATE EXT REL 50 MG TABCR PO (09:50)
[2022-06-29] MEDS: CLOPIDOGREL BISULFATE 75 MG TABLET PO (09:50)
[2022-06-29] MEDS: hydroCHLOROthiazide 12.5 MG CAPSULE PO (09:50)
[2022-06-29] MEDS: FUROSEMIDE 20 MG TABLET PO (09:50)
[2022-06-29] MEDS: OPTI-GEN TAB 1 TABLET PO ×2 (09:51→17:55)
[2022-06-29] MEDS: FLUTICASONE PROPIONATE 0.05% NA SPR 16 GM BTL (*BKC) 2 SPRAY NASAL (10:01)
--- NOTE | 2022-06-29 20:15 | PM.IMPN ---
Progress Note: A&P Assessment and Plan (1) Altered mental status: Code(s): R41.82 - Altered mental status, unspecified Status: Acute Assessment and Plan: May be related to COVID19 illness versus pneumonia. May ahve some underlying dementia as reports he is only intermittently alert and oriented to self +/- location. Much more awake this morning and responds appropriately to questions. -Continue to hold sedating medications (2) COVID-19: Code(s): U07.1 - COVID-19 Status: Acute Assessment and Plan: On room air with adequate oxygen saturations. No indication for treatment at this time. (3) Supratherapeutic INR: Code(s): R79.1 - Abnormal coagulation profile Status: Acute Assessment and Plan: Clarified with . Valve is bovine. Goal INR is 2-3. Today INR 4.1 -Continue to hold warfarin (4) Pneumonia: Code(s): J18.9 - Pneumonia, unspecified organism Status: Acute Assessment and Plan: Continue ceftriaxone and azithromycin (5) Atrial fibrillation: Qualifiers: Atrial fibrillation type: persistent (not longstanding) Qualified Code(s): I48.19 - Other persistent atrial fibrillation Code(s): I48.91 - Unspecified atrial fibrillation Status: Acute Assessment and Plan: On warfarin and metoprolol at home. Rate controlled. -Hold warfarin -Continue metoprolol (6) S/p TAVR (transcatheter aortic valve replacement), bioprosthetic: Code(s): Z95.3 - Presence of xenogenic heart valve Status: Acute Assessment and Plan: Stable. (7) Hypertension: Qualifiers: Hypertension type: unspecified Qualified Code(s): I10 - Essential (primary) hypertension Code(s): I10 - Essential (primary) hypertension Status: Chronic Assessment and Plan: On metoprolol and valsartan hydrochlorothiazide. Continue home medications. (8) Hyperlipidemia: Qualifiers: Hyperlipidemia type: mixed hyperlipidemia Qualified Code(s): E78.2 - Mixed hyperlipidemia Code(s): E78.5 - Hyperlipidemia, unspecified Status: Chronic Assessment and Plan: On atorvastatin at home. Continue home medication. (9) BPH (benign prostatic hyperplasia): Qualifiers: Lower urinary tract symptom presence: unspecified whether lower urinary tract symptoms present Qualified Code(s): N40.0 - Benign prostatic hyperplasia without lower urinary tract symptoms Code(s): N40.0 - Benign prostatic hyperplasia without lower urinary tract symptoms Status: Chronic Assessment and Plan: Takes tamsulosin at home. Continue tamsulosin. (10) Parkinson disease: Code(s): G20 - Parkinson's disease Status: Chronic Assessment and Plan: Holding carbidopa-levodopa due to confusion and somnolence. (11) Gait instability: Code(s): R26.81 - Unsteadiness on feet Status: Acute Assessment and Plan: Patient has been refusing physical therapy. Dicussed this with . Subjective Date/time seen: 06/29/22 08:15 Patient denies having any difficulty breathing. Called and spoke with who reports the patient has severe back pain and can hardly move. She wanted to know if he was up and around moving better because she says she cannot move him at home. says they have a helper who comes in for an hour once a week and was just granted four hours for herself and each to have someone come into the home. Review of Systems Respiratory: Respiratory: Denies dyspnea Exam Narrative: GENERAL: NAD, cooperative HEENT: Normocephalic, atraumatic, anicteric NECK:Supple CV: Normal S1, S2, RRR, No MRG RESP: CTAB, Normal work of breathing. EXTREMITIES: Warm and well perfused, no clubbing, cyanosis, or edema. SKIN: warm, dry and intact. NEURO: Alert and oriented to self, names Levi
[2022-06-29] MEDS: ATORVASTATIN 20 MG TABLET PO (20:49)
[2022-06-29] MEDS: TAMSULOSIN HCL 0.4 MG CAPSULE PO (20:49)
[2022-06-30] VITALS (8 sets, daily range): BP systolic 101–163; BP diastolic 57–94; PULSE 70–111; RESP 14–20; TEMP 36.1–37; O2SAT 95–100
[2022-06-30] MEDS: HALOPERIDOL LACTATE 5 MG/ML VIAL 1 MG IM (01:52)
--- NOTE | 2022-06-30 07:57 | PM.DS ---
DS: Summary Time Spent with Patient Time attestation: Total time spent providing and/or coordinating discharge services: Discharge Plan Discharge Patient Instructions: Safe Use of Anticoagulants (DC) Discharge Medications: No Action PreserVision AREDS-2 [id number] jx-qgdv-co-mg capsule 1 tablet PO BID cyanocobalamin (vitamin B-12) 100 mcg tablet 100 mcg PO DAILY carbidopa-levodopa 25-100 mg tablet 1 tablet PO BID Qty: 180 3RF atorvastatin [Lipitor] 20 mg tablet 20 mg PO HS Qty: 90 3RF clopidogrel 75 mg tablet 75 mg PO DAILY Qty: 90 3RF tamsulosin [Flomax] 0.4 mg capsule 0.4 mg PO HS Qty: 90 3RF acetaminophen [Mapap (acetaminophen)] 325 mg Tablet 650 mg PO Q4H PRN (Reason: Mild Pain (1-3) Or Fever) Qty: 30 0RF warfarin 5 mg tablet 5 mg PO DAILY duloxetine 30 mg capsule,delayed release(DR/EC) 30 mg PO HS nitroglycerin 0.4 mg tablet, sublingual 0.4 mg sublingual Q5M PRN (Reason: chest pain) Qty: 50 0RF Rx Instructions: do not exceed 3 doses per episode metoprolol succinate 50 mg tablet extended release 24 hr 50 mg PO DAILY Qty: 90 3RF valsartan-hydrochlorothiazide 80-12.5 mg tablet 1 tablet PO DAILY Qty: 90 3RF Hold Instructions: Continue holding. BP has been well controlled without this medication. Continue checking BP and if elevated consider restarting. Follow up with PCP furosemide 20 mg tablet 20 mg PO DAILY Qty: 90 2RF fluticasone propionate 50 mcg/actuation spray,suspension 2 spray NASAL DAILY Qty: 15.8 5RF pregabalin [Lyrica] 50 mg capsule 50 mg PO TID Qty: 90 5RF Date of admission: 06/28/22 16:03 Primary Care Provider: Florentino Arnold Admitting Provider: Connie Chávez Attending physician on admission: Connie Chávez Condition: Stable
[2022-06-30] MEDS: FUROSEMIDE 20 MG TABLET PO (08:28)
[2022-06-30] MEDS: CLOPIDOGREL BISULFATE 75 MG TABLET PO (08:28)
[2022-06-30] MEDS: VALSARTAN 80 MG TABLET PO (08:28)
[2022-06-30] MEDS: hydroCHLOROthiazide 12.5 MG CAPSULE PO (08:28)
[2022-06-30] MEDS: FLUTICASONE PROPIONATE 0.05% NA SPR 16 GM BTL (*BKC) 2 SPRAY NASAL (08:29)
[2022-06-30] MEDS: METOPROLOL SUCCINATE EXT REL 50 MG TABCR PO (08:29)
[2022-06-30] MEDS: OPTI-GEN TAB 1 TABLET PO ×2 (08:29→16:17)
[2022-06-30] MEDS: CYANOCOBALAMIN 250 MCG TABLET PO (08:30)
[2022-06-30 09:08] LABS: INR 3.1; Prothrombin Time 31.3 Seconds (11.1-14.7)
--- NOTE | 2022-06-30 11:44 | PC.NURSE ---
concerned about possible discharge today, spoke with MD Chávez, transfered to care coordination to work out discharge details
--- NOTE | 2022-06-30 12:05 | PCPTNOTE ---
Attempted PT evaluation, patient refusing to participate with therapy yelling no and Don't touch me. RN aware and hospitalist aware. Orders DC.
--- NOTE | 2022-06-30 13:22 | PCOTNOTE ---
Attempted Occupational Therapy evaluation. Pt. unwilling to participate despite multiple attempts and strategies to encourage and inform pt. of benefits of therapy, stating that he did not want to be assisted and would not get out of bed. Nursing and hospitalist updated. Orders to be cancelled. Re-order if/when pt. willing to participate.
--- NOTE | 2022-06-30 21:14 | PM.IMPN ---
Progress Note: A&P Assessment and Plan (1) Altered mental status: Code(s): R41.82 - Altered mental status, unspecified Status: Acute Assessment and Plan: Per , patient does have some memory problems and on most days at home knows his name, date of and where he is located. Usually does not know the month, date or year. Patient appears to be at his baseline. -Will start resuming some of his medications for back pain -Discharge was held yesterday because says she can no longer care for him at this time -Spoke with PT/OT twice today with PT/OT reporting the patient refuses to participate, so PT/OT will be signing off -Received a message from care coordination that discharge will need to be held today because they are working on sending referral to SNF and the SNF will submit for insurance authorization, so the patient will definitely have to stay in the hospital through Saturday. (2) COVID-19: Code(s): U07.1 - COVID-19 Status: Acute Assessment and Plan: On room air with adequate oxygen saturations. No indication for treatment at this time. (3) Supratherapeutic INR: Code(s): R79.1 - Abnormal coagulation profile Status: Acute Assessment and Plan: Clarified with . Valve is bovine. Goal INR is 2-3. Today INR 3.1. -Will order for warfarin to restart Saturday evening (4) Pneumonia: Code(s): J18.9 - Pneumonia, unspecified organism Status: Acute Assessment and Plan: Will discontinue azithromycin and add stop date to ceftriaxone. Continue ceftriaxone. (5) Atrial fibrillation: Qualifiers: Atrial fibrillation type: persistent (not longstanding) Qualified Code(s): I48.19 - Other persistent atrial fibrillation Code(s): I48.91 - Unspecified atrial fibrillation Status: Acute Assessment and Plan: On warfarin and metoprolol at home. Rate controlled. -Warfarin to restart Saturday, July 01, 2022 evening -Continue metoprolol (6) S/p TAVR (transcatheter aortic valve replacement), bioprosthetic: Code(s): Z95.3 - Presence of xenogenic heart valve Status: Acute Assessment and Plan: Stable. (7) Hypertension: Qualifiers: Hypertension type: unspecified Qualified Code(s): I10 - Essential (primary) hypertension Code(s): I10 - Essential (primary) hypertension Status: Chronic Assessment and Plan: On metoprolol and valsartan hydrochlorothiazide. Continue home medications. (8) Hyperlipidemia: Qualifiers: Hyperlipidemia type: mixed hyperlipidemia Qualified Code(s): E78.2 - Mixed hyperlipidemia Code(s): E78.5 - Hyperlipidemia, unspecified Status: Chronic Assessment and Plan: On atorvastatin at home. Continue home medication. (9) BPH (benign prostatic hyperplasia): Qualifiers: Lower urinary tract symptom presence: unspecified whether lower urinary tract symptoms present Qualified Code(s): N40.0 - Benign prostatic hyperplasia without lower urinary tract symptoms Code(s): N40.0 - Benign prostatic hyperplasia without lower urinary tract symptoms Status: Chronic Assessment and Plan: Takes tamsulosin at home. Continue tamsulosin. (10) Parkinson disease: Code(s): G20 - Parkinson's disease Status: Chronic Assessment and Plan: Holding carbidopa-levodopa due to confusion and somnolence. (11) Gait instability: Code(s): R26.81 - Unsteadiness on feet Status: Acute Assessment and Plan: Patient has been refusing physical therapy. Dicussed this with . (12) Chronic back pain: Code(s): M54.9 - Dorsalgia, unspecified; G89.29 - Other chronic pain Status: Acute Assessment and Plan: Restart duloxetine hs for back pain. Subjective Date/time seen: 06/30/22 07:57 Patient says he has red
[2022-06-30] MEDS: ATORVASTATIN 20 MG TABLET PO (21:29)
[2022-06-30] MEDS: TAMSULOSIN HCL 0.4 MG CAPSULE PO (21:29)
[2022-07-01] VITALS (10 sets, daily range): BP systolic 110–122; BP diastolic 53–63; PULSE 92–106; RESP 14–20; TEMP 36.1–36.6; O2SAT 95–99
[2022-07-01 06:32] LABS: Basophils Percent Auto 0.3 % (0.2-1.2); Eosinophils Absolute Auto 0.2 K/mm3 (0-0.3); Eosinophils Percent Auto 2.5 % (0-4.4); Hematocrit 33.6 % (42.0-52.0); Immature Granulocyte Absolute 0.04 K/mm3 (0.00-0.031); Immature Granulocyte Percent A 0.7 % (0-0.5); Lymphocytes Absolute Auto 0.95 K/mm3 (0.9-3.2); Lymphocytes Percent Auto 15.7 % (18.3-44.2); Mean Corpuscular HGB Conc 32.7 g/dl (32-36); Mean Corpuscular Hemoglobin 30.7 pg (26-34); Mean Corpuscular Volume 93.9 fl (80-100); Monocytes Absolute Auto 0.9 K/mm3 (0.1-0.6); Monocytes Percent Auto 15.4 % (2.6-8.5); Neutrophils Percent Auto 65.4 % (45.5-73.1); Platelet Count Result 128 k/mm3 (150-375); Red Blood Count 3.58 M/mm3 (4.6-6.20); Red Cell Distribution Width 16.2 % (11.5-14.5); White Blood Count 6.1 K/mm3 (4.5-10.0)
[2022-07-01 06:40] LABS: Alanine Aminotransferase 21 U/L (6-50); Albumin Level 3.9 g/dL (3.5-5.1); Alkaline Phosphatase 104 U/L (38-126); Anion Gap 12 mmol/L (8-16); Aspartate Amino Transferase 38 U/L (17-59); Bilirubin,Total 0.8 mg/dL (0.2-1.3); Blood Urea Nitrogen 29 mg/dL (9-20); Calcium 9.1 mg/dL (8.4-10.2); Carbon Dioxide 23 mmol/L (22-30); Chloride 100 mmol/L (98-107); Estimated CRCL calculation 47 ml/min; Estimated Glomerular Filt Rate > 60; Glucose 114 mg/dL (65-110); Potassium 4.5 mmol/L (3.4-5.0); Sodium 135 mmol/L (137-145)
[2022-07-01 06:43] LABS: INR 2.5; Prothrombin Time 26.1 Seconds (11.1-14.7)
[2022-07-01] MEDS: PREGABALIN (*CRX) 50 MG CAPSULE PO (08:16)
[2022-07-01] MEDS: hydroCHLOROthiazide 12.5 MG CAPSULE PO (08:16)
[2022-07-01] MEDS: CLOPIDOGREL BISULFATE 75 MG TABLET PO (08:16)
[2022-07-01] MEDS: FUROSEMIDE 20 MG TABLET PO (08:16)
[2022-07-01] MEDS: CYANOCOBALAMIN 250 MCG TABLET PO (08:16)
[2022-07-01] MEDS: OPTI-GEN TAB 1 TABLET PO ×2 (08:16→17:12)
[2022-07-01] MEDS: VALSARTAN 80 MG TABLET PO (08:17)
[2022-07-01] MEDS: FLUTICASONE PROPIONATE 0.05% NA SPR 16 GM BTL (*BKC) 2 SPRAY NASAL (08:17)
[2022-07-01] MEDS: METOPROLOL SUCCINATE EXT REL 50 MG TABCR PO (08:17)
--- NOTE | 2022-07-01 13:23 | PM.IMPN ---
Progress Note: A&P Assessment and Plan (1) Altered mental status: Code(s): R41.82 - Altered mental status, unspecified Status: Acute Assessment and Plan: Patient brought the the ED with complaint of altered mental status. CT brain showing no acute findings. 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 TSH normal. B12/folate normal last year. Per , patient has memory problems and knows his name, date of and where he is located. Usually does not know the month, date or year. Patient appears to be at his baseline. Discharge was held because says she can no longer care for him at this time. PT/OT reporting the patient refuses to participate, so PT/OT signed off. Patient refusing to eat until his arrives. Continue supportive care. Discussed with . Discussed code status. (2) COVID-19: Code(s): U07.1 - COVID-19 Status: Acute Assessment and Plan: Patient tested positive for COVID-19 on 06/27/22. Unclear if he was symptomatic prior to admission and for how long. CXR on admission showing bilateral airspace disease, left greater than right, consistent with pneumonia. Asymmetric edema less favored. Essentially day 4 since positive test. He remain on room air with adequate oxygen saturations. Exam clear to quiet respirations. No indication for treatment at this time. Repeat CXR in the morning. (3) Supratherapeutic INR: Code(s): R79.1 - Abnormal coagulation profile Status: Acute Assessment and Plan: Previous provider clarified with that the patient has a bioprosthetic heart valve. Goal INR is 2-3. Today INR 2.5. Continue warfarin. Daily INR. (4) Pneumonia: Code(s): J18.9 - Pneumonia, unspecified organism Status: Acute Assessment and Plan: CXR as mentioned above. Azithromycin was stopped. He remains on ceftriaxone through today. No blood cultures drawn. He remains on room air. Continue ceftriaxone. (5) Atrial fibrillation: Qualifiers: Atrial fibrillation type: persistent (not longstanding) Qualified Code(s): I48.19 - Other persistent atrial fibrillation Code(s): I48.91 - Unspecified atrial fibrillation Status: Acute Assessment and Plan: Patient on warfarin as mentioned above. Heart rate remains well controlled on Toprol XL. Telemetry reviewed. Warfarin has been restarted. Continue daily INRs. Continue metoprolol. Stop telemetry. (6) S/p TAVR (transcatheter aortic valve replacement), bioprosthetic: Code(s): Z95.3 - Presence of xenogenic heart valve Status: Acute Assessment and Plan: As above. Stable. (7) Hypertension: Qualifiers: Hypertension type: unspecified Qualified Code(s): I10 - Essential (primary) hypertension Code(s): I10 - Essential (primary) hypertension Status: Chronic Assessment and Plan: Patient's blood pressure was reviewed on 07/01 Blood pressure remains well controlled. Will continue current medications with metoprolol, valsartan and hydrochlorothiazide. (8) Hyperlipidemia: Qualifiers: Hyperlipidemia type: mixed hyperlipidemia Qualified Code(s): E78.2 - Mixed hyperlipidemia Code(s): E78.5 - Hyperlipidemia, unspecified Status: Chronic Assessment and Plan: On atorvastatin at home. Continue home medication. (9) BPH (benign prostatic hyperplasia): Qualifiers: Lower urinary tract symptom presence: unspecified whether lower urinary tract symptoms present Qualified Code(s): N40.0 - Benign prostatic hyperplasia without lower urinary tract symptoms Code(s): N40.0 - Benign prostatic hyperplasia without lower urinary tract symptoms Status: Chronic Assessment and Plan: Takes tamsulosin at home. Continue tamsulosin. (10) Parkinson disease: Code(s): G20 - Parkinson's disease Status: Chronic Assessment and Plan: Hol
--- NOTE | 2022-07-01 14:52 | PCPTNOTE ---
Care coordination aware of poor participation with therapy.
[2022-07-01] MEDS: CARBIDOPA/LEVODOPA 25/100 MG TABLET 1 TABLET PO (17:11)
[2022-07-01] MEDS: WARFARIN (*PBKC) 5 MG TABLET PO (17:11)
[2022-07-01] MEDS: TAMSULOSIN HCL 0.4 MG CAPSULE PO (22:13)
[2022-07-01] MEDS: DULoxetine HCL 30 MG CAPSULE.DR PO (22:13)
[2022-07-01] MEDS: ATORVASTATIN 20 MG TABLET PO (22:13)
[2022-07-02] VITALS: BP 112/60; PULSE 92; RESP 18; TEMP 36.6; O2SAT 99
[2022-07-02 04:00] VITALS: BP 112/61; PULSE 88; RESP 18; TEMP 36.7; O2SAT 99
[2022-07-02 06:27] LABS: INR 2.6
[2022-07-02 08:00] VITALS: BP 112/66; PULSE 110; RESP 18; TEMP 36.2; O2SAT 96
[2022-07-02] MEDS: hydroCHLOROthiazide 12.5 MG CAPSULE PO (10:02)
[2022-07-02] MEDS: CYANOCOBALAMIN 250 MCG TABLET PO (10:03)
[2022-07-02] MEDS: VALSARTAN 80 MG TABLET PO (10:03)
[2022-07-02] MEDS: METOPROLOL SUCCINATE EXT REL 50 MG TABCR PO (10:03)
[2022-07-02] MEDS: CARBIDOPA/LEVODOPA 25/100 MG TABLET 1 TABLET PO ×2 (10:03→21:00)
[2022-07-02] MEDS: OPTI-GEN TAB 1 TABLET PO (10:03)
[2022-07-02] MEDS: CLOPIDOGREL BISULFATE 75 MG TABLET PO (10:03)
[2022-07-02] MEDS: FUROSEMIDE 20 MG TABLET PO (10:03)
[2022-07-02] MEDS: PREGABALIN (*CRX) 50 MG CAPSULE PO (10:06)
[2022-07-02] MEDS: FLUTICASONE PROPIONATE 0.05% NA SPR 16 GM BTL (*BKC) 2 SPRAY NASAL (10:07)
[2022-07-02 12:00] VITALS: BP 118/66; PULSE 98; RESP 16; TEMP 36.8; O2SAT 93
[2022-07-02 16:00] VITALS: BP 105/65; PULSE 97; RESP 16; TEMP 35.9; O2SAT 99
--- NOTE | 2022-07-02 16:04 | PM.IMPN ---
Progress Note: A&P Assessment and Plan (1) Altered mental status: Code(s): R41.82 - Altered mental status, unspecified Status: Acute Assessment and Plan: Patient brought the the ED with complaint of altered mental status. CT brain showing no acute findings. 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 TSH normal. B12/folate normal last year. Per , patient has memory problems. Discharge was held because says she can no longer care for him at this time. PT/OT reporting the patient refuses to participate, so PT/OT signed off. Continue supportive care. (2) COVID-19: Code(s): U07.1 - COVID-19 Status: Acute Assessment and Plan: Patient tested positive for COVID-19 on 06/27/22. Unclear if he was symptomatic prior to admission and for how long. CXR on admission showing bilateral airspace disease, left greater than right, consistent with pneumonia. Asymmetric edema less favored. Essentially day 5 since positive test. He remains on room air with adequate oxygen saturations. Exam clear to quiet respirations. Repeat CXR showing interval improvement. No indication for treatment at this time. (3) Supratherapeutic INR: Code(s): R79.1 - Abnormal coagulation profile Status: Acute Assessment and Plan: Previous provider clarified with that the patient has a bioprosthetic heart valve. Goal INR is 2-3. Today INR 2.6. Continue warfarin. Daily INR. (4) Pneumonia: Code(s): J18.9 - Pneumonia, unspecified organism Status: Acute Assessment and Plan: CXR as mentioned above. He completed a course of abx with Azithromycin and ceftriaxone. No blood cultures drawn. He remains on room air. (5) Atrial fibrillation: Qualifiers: Atrial fibrillation type: persistent (not longstanding) Qualified Code(s): I48.19 - Other persistent atrial fibrillation Code(s): I48.91 - Unspecified atrial fibrillation Status: Acute Assessment and Plan: Patient on warfarin as mentioned above. Heart rate remains well controlled on Toprol XL. INR therapeutic. Continue daily INRs. Continue metoprolol. (6) S/p TAVR (transcatheter aortic valve replacement), bioprosthetic: Code(s): Z95.3 - Presence of xenogenic heart valve Status: Acute Assessment and Plan: As above. Stable. (7) Hypertension: Qualifiers: Hypertension type: unspecified Qualified Code(s): I10 - Essential (primary) hypertension Code(s): I10 - Essential (primary) hypertension Status: Chronic Assessment and Plan: Patient's blood pressure was reviewed on 07/02 Blood pressure remains well controlled. Will continue current medications with metoprolol, valsartan and hydrochlorothiazide. (8) Hyperlipidemia: Qualifiers: Hyperlipidemia type: mixed hyperlipidemia Qualified Code(s): E78.2 - Mixed hyperlipidemia Code(s): E78.5 - Hyperlipidemia, unspecified Status: Chronic Assessment and Plan: On atorvastatin at home. Continue home medication. (9) BPH (benign prostatic hyperplasia): Qualifiers: Lower urinary tract symptom presence: unspecified whether lower urinary tract symptoms present Qualified Code(s): N40.0 - Benign prostatic hyperplasia without lower urinary tract symptoms Code(s): N40.0 - Benign prostatic hyperplasia without lower urinary tract symptoms Status: Chronic Assessment and Plan: Takes tamsulosin at home. Continue tamsulosin. (10) Parkinson disease: Code(s): G20 - Parkinson's disease Status: Chronic Assessment and Plan: Carbidopa-levodopa was held due to confusion and somnolence but since resumed. Follow. He is refusing therapy. (11) Gait instability: Code(s): R26.81 - Unsteadiness on feet Status: Acute Assessment and Plan: Patient has been refusing physical therapy. His had been
[2022-07-02 20:00] VITALS: BP 101/50; PULSE 116; RESP 16; TEMP 36.2; O2SAT 98
[2022-07-02] MEDS: DULoxetine HCL 30 MG CAPSULE.DR PO (21:00)
[2022-07-02] MEDS: TAMSULOSIN HCL 0.4 MG CAPSULE PO (21:00)
[2022-07-02] MEDS: ATORVASTATIN 20 MG TABLET PO (21:00)
[2022-07-03 06:43] LABS: Hematocrit 36.2 % (42.0-52.0); Hemoglobin 11.9 g/dL (14.0-18.0); Mean Corpuscular HGB Conc 32.9 g/dl (32-36); Mean Corpuscular Hemoglobin 30.9 pg (26-34); Mean Platelet Volume 11.7 fl (7.4-10.4); Platelet Count Result 147 k/mm3 (150-375); Red Blood Count 3.85 M/mm3 (4.6-6.20); Red Cell Distribution Width 16.4 % (11.5-14.5); White Blood Count 12.1 K/mm3 (4.5-10.0)
[2022-07-03 06:59] LABS: INR 3.6; Prothrombin Time 35.1 Seconds (11.1-14.7)
[2022-07-03 07:13] LABS: Anion Gap 15 mmol/L (8-16); Blood Urea Nitrogen 50 mg/dL (9-20); Calcium 8.9 mg/dL (8.4-10.2); Carbon Dioxide 20 mmol/L (22-30); Chloride 100 mmol/L (98-107); Estimated CRCL calculation 30 ml/min; Estimated Glomerular Filt Rate 41; Glucose 124 mg/dL (65-110); Sodium 135 mmol/L (137-145)
[2022-07-03 08:00] VITALS: BP 119/86; PULSE 88; RESP 19; TEMP 35.9; O2SAT 96
[2022-07-03] MEDS: FLUTICASONE PROPIONATE 0.05% NA SPR 16 GM BTL (*BKC) 2 SPRAY NASAL (09:41)
[2022-07-03 12:00] VITALS: BP 124/94; PULSE 144; RESP 21; TEMP 36.9; O2SAT 98
[2022-07-03 15:56] VITALS: BP 121/85; PULSE 119; RESP 20; TEMP 36; O2SAT 95
--- NOTE | 2022-07-03 17:36 | PM.IMPN ---
Progress Note: A&P Assessment and Plan (1) MATT (acute kidney injury): Code(s): N17.9 - Acute kidney failure, unspecified Status: Acute Assessment and Plan: Lab work today showing elevated white count of 12 K with BUN of 50 and creatinine 1.6. Will hold his Lasix, Diovan and hydrochlorothiazide. Check urine studies but suspect this is prerenal from his poor oral intake. Consider also bladder outlet obstruction since he has BPH although bladder does not feel distended. Check bladder ultrasound. Start IV fluids. Check UA with reflex culture. Spoke with . She feels that her 'is ready to go'. We discussed options including Hospice. She was receptive to hospice and we will provide information to her. We discussed code status and she is agreeable to change code status to DNR. (2) Altered mental status: Code(s): R41.82 - Altered mental status, unspecified Status: Acute Assessment and Plan: Patient brought the the ED with complaint of altered mental status. CT brain showing no acute findings. 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 TSH normal. B12/folate normal last year. Per , patient has memory problems. Discharge was held because says she can no longer care for him at this time. PT/OT reporting the patient refuses to participate, so PT/OT signed off. Suspect progression of his dementia. Continue supportive care. (3) COVID-19: Code(s): U07.1 - COVID-19 Status: Acute Assessment and Plan: Patient tested positive for COVID-19 on 06/27/22. Unclear if he was symptomatic prior to admission and for how long. CXR on admission showing bilateral airspace disease, left greater than right, consistent with pneumonia. Asymmetric edema less favored. Essentially day 6 since positive test. He remains on room air with adequate oxygen saturations. Exam clear to quiet respirations. Repeat CXR showing interval improvement. No indication for treatment at this time. (4) Supratherapeutic INR: Code(s): R79.1 - Abnormal coagulation profile Status: Acute Assessment and Plan: Previous provider clarified with that the patient has a bioprosthetic heart valve. Goal INR is 2-3. Today INR 3.6. Hold warfarin. Daily INR. (5) Pneumonia: Code(s): J18.9 - Pneumonia, unspecified organism Status: Acute Assessment and Plan: CXR as mentioned above. He completed a course of abx with Azithromycin and ceftriaxone. No blood cultures drawn. He remains on room air. (6) Atrial fibrillation: Qualifiers: Atrial fibrillation type: persistent (not longstanding) Qualified Code(s): I48.19 - Other persistent atrial fibrillation Code(s): I48.91 - Unspecified atrial fibrillation Status: Acute Assessment and Plan: Patient on warfarin as mentioned above. Heart rate elevated at times. He remains on Toprol XL. INR supratherapeutic. Continue daily INRs. Continue metoprolol. Hold warfarin (7) S/p TAVR (transcatheter aortic valve replacement), bioprosthetic: Code(s): Z95.3 - Presence of xenogenic heart valve Status: Acute Assessment and Plan: As above. Stable. (8) Hypertension: Qualifiers: Hypertension type: unspecified Qualified Code(s): I10 - Essential (primary) hypertension Code(s): I10 - Essential (primary) hypertension Status: Chronic Assessment and Plan: Patient's blood pressure was reviewed on 07/03 Blood pressure remains well controlled. Will continue current medications with metoprolol; Hold valsartan and hydrochlorothiazide. (9) Hyperlipidemia: Qualifiers: Hyperlipidemia type: mixed hyperlipidemia Qualified Code(s): E78.2 - Mixed hyperlipidemia Code(s): E78.5 - Hyperlipidemia, unspecified Status: Chronic Assessment and Plan: On atorvastatin at home. Continue home medication. (10) BPH (benign prostatic
[2022-07-03] MEDS: SODIUM CHLORIDE 0.9% IV 1,000 ML 70 ML IV CONT (19:09)
[2022-07-03 20:00] VITALS: BP 118/70; PULSE 81; RESP 16; TEMP 36.3; O2SAT 97
[2022-07-03 20:58] LABS: Anion Gap 15 mmol/L (8-16); Blood Urea Nitrogen 63 mg/dL (9-20); Calcium 9.1 mg/dL (8.4-10.2); Carbon Dioxide 18 mmol/L (22-30); Chloride 101 mmol/L (98-107); Estimated CRCL calculation 28 ml/min; Estimated Glomerular Filt Rate 39; Glucose 117 mg/dL (65-110); Sodium 134 mmol/L (137-145)
[2022-07-03] MEDS: DULoxetine HCL 30 MG CAPSULE.DR PO (21:40)
[2022-07-03] MEDS: TAMSULOSIN HCL 0.4 MG CAPSULE PO (21:40)
[2022-07-03] MEDS: ATORVASTATIN 20 MG TABLET PO (21:40)
[2022-07-04] VITALS (11 sets, daily range): BP systolic 50–86; BP diastolic 19–66; PULSE 50–146; RESP 7–18; TEMP 35.6–36.1; O2SAT 88–97
[2022-07-04 04:49] LABS: Glucose Point of Care 234 mg/dl (65-105)
--- NOTE | 2022-07-04 04:50 | ECG_ITS ---
Measurements Intervals [place] Rate: 152 P: 15 FL: 177 QRS: 264 QRSD: 190 T: 0 QT: 350 QTc: 346 Interpretive Statements SUPRAVENTRICULAR TACHYCARDIA PROBABLE ATRIAL FLUTTER RIGHT BUNDLE BRANCH BLOCK CANNOT RULE OUT INFERIOR MYOCARDIAL INFARCTION, OF INDETERMINATE AGE ABNORMAL ECG COMPARED TO ECG 06/27/2022 09:23:12 ATRIAL FLUTTER HAS REPLACED ATRIAL FIBRILLATION HEART RATE HAS INCREASED Electronically Signed On 07-04-2022 12:41:37 CDT by Basilio Ruiz M.D.
--- NOTE | 2022-07-04 05:34 | P.RRN_ITS ---
Critical Care Event Note Summary Code activated: No Narrative: 07/04/2022 at 04:39 Nursing staff arrived to the patient's room to find the patient covered in blood with evidence of hemorrhage. The patient was unresponsive with agonal respirations. Blood pressure was obtained in was in the 70 systolic. The patient's heart rate was in the 120s to 130s. I arrived at the room in under 2 minutes. While investigating source of bleeding with found the patient's IV disconnected from the hub. The hub was pouring out blood. The patient was coagulopathic with elevated INR yesterday with Coumadin on hold. The patient had evidence of large volume blood loss with extensive clot lying beside him in the bed and on the floor. Nursing staff had been in the room 45 minutes prior and the patient had been resting comfortably with no evidence of bleeding. At the time of my exam patient was pale, cold to touch, skin temperature was 95?, patient's heart rate was variable and ranged from 120-170. Patient's blood pressures dropped as low as 50s systolic. Immediately 1 L fluid bolus was hung. patient's blood pressures did improved to the 70s. Rapid transfusion protocol initiated in 2 units of type nonspecific was ordered accu-Chek was obtained and was around 200. Stat EKG was obtained which demonstrated evidence of ischemia but no evidence of STEMI. The patient's oxygen saturations did drop during the course of her resuscitation down to the 70s. Patient was placed on a non- rebreather with improvement in oxygen saturations. The patient received a 2 L fluid bolus while awaiting release of emergency blood. At the time of my last evaluation the patient was receiving 1 unit packed red blood cells rapid infusion and I requested the 2nd unit be hung at the same time. With the 2nd unit of blood hanging the patient's blood pressures did improved to 145 systolic. The patient's heart rate still remained in the 140s to 160s. At this time the patient had woke up and was looking around the room and responding to the family who had arrived at bedside. The patient's blood pressures did start to trend back down. I did order 2 units of FFP but the family has decided to proceed with comfort measures only in this order will be discontinued. The patient's labs came back with the Critical white count of 0.9 anti-platelet critical platelet count of 19. His hemoglobin was 22 but it turns out the patient's blood was obtained just above where he was getting his rapid blood transfusion. This likely resulted in the abnormalities seen in the cbc. I suspect that the rest of the patient's blood values will be equally erroneous as the patient's blood values will be obtained strictly from the transfused blood. Family confirm that they did not want the patient intubated or cardiac resuscitated. At this time the family would like to proceed with comfort measures only. Comfort meds will be ordered. Will refrain from any further lab draws or invasive procedures. 75 minutes spent in critical care activities. This case had a high probability of a clinically significant, sudden, or life threatening deterioration of this patient's condition which required my full and direct attention, intervention and personal management. Critical care time: 75 - 104 mins
[2022-07-04 05:49] LABS: Basophils Percent Auto 1.1 % (0.2-1.2); Hematocrit 74.9 % (42.0-52.0); Hemoglobin 22.6 g/dL (14.0-18.0); Immature Granulocyte Absolute 0.01 K/mm3 (0.00-0.031); Immature Granulocyte Percent A 1.1 % (0-0.5); Immature Platelet Fraction Pct 3.4 % (0.9-11.2); Lymphocytes Percent Auto 11.2 % (18.3-44.2); Mean Corpuscular HGB Conc 30.2 g/dl (32-36); Mean Corpuscular Hemoglobin 33.1 pg (26-34); Mean Corpuscular Volume 109.7 fl (80-100); Monocytes Absolute Auto 0.1 K/mm3 (0.1-0.6); Neutrophils Absolute Auto 0.7 K/mm3 (1.3-6.7); Neutrophils Percent Auto 77.6 % (45.5-73.1); Red Blood Count 6.83 M/mm3 (4.6-6.20); Red Cell Distribution Width 13.9 % (11.5-14.5)
[2022-07-04 05:58] LABS: Platelet Count Result 19 k/mm3 (150-375); White Blood Count 0.9 K/mm3 (4.5-10.0)
[2022-07-04 06:00] LABS: Prothrombin Time 54.4 Seconds (11.1-14.7)
[2022-07-04 06:18] LABS: INR 6.4
[2022-07-04] MEDS: LORazepam INJ (*CRX) 2 MG/ML VIAL 1 MG IV PUSH (06:18)
[2022-07-04] MEDS: SODIUM CHLORIDE 0.9% IV 1,000 ML 999 ML IV CONT (06:27)
[2022-07-04 06:39] LABS: Partial Thromboplastin Time 94.7 SECONDS (22.3-36.8)
[2022-07-04 06:43] LABS: Alanine Aminotransferase 15 U/L (6-50); Albumin Level 1.2 g/dL (3.5-5.1); Aspartate Amino Transferase 20 U/L (17-59); Bilirubin,Total 0.7 mg/dL (0.2-1.3); Blood Urea Nitrogen 12 mg/dL (9-20); Calcium 1.5 mg/dL (8.4-10.2); Carbon Dioxide < 5 mmol/L (22-30); Chloride 105 mmol/L (98-107); Estimated CRCL calculation 65 ml/min; Estimated Glomerular Filt Rate > 60; Glucose 520 mg/dL (65-110); Sodium 120 mmol/L (137-145)
[2022-07-04 06:56] LABS: Alkaline Phosphatase < 20 U/L (38-126); Potassium > 14.0 mmol/L (3.4-5.0); Total Protein < 2.0 g/dL (6.3-8.2)
[2022-07-04 07:19] LABS: Troponin I 0.054 ng/mL (0.000-0.034)
[2022-07-04 08:38] LABS: Reflex Lactic Acid Yes or No Add Lactic
--- NOTE | 2022-07-04 15:28 | P.DN_ITS ---
Discharge Summary Date and Time Date of : 07/04/22 Time of : 10:10 Provider Pronounced By: Analilia Guzman RN Probable Cause of Probable Cause of : Hypovolemic shock Summary Hospital Course: Patient brought the the ED with complaint of altered mental status. CT brain showing no acute findings. 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 TSH normal. B12/folate normal last year. Per , patient has memory problems. Discharge was held because says she can no longer care for him at this time. PT/OT reporting the patient refuses to participate, so PT/OT signed off. Suspect altered mental status was progression of his dementia. Patient tested positive for COVID-19 on 06/27/22. CXR on admission showing?bilateral airspace disease, left greater than right, consistent with pneumonia. Asymmetric edema less favored.?He remained on room air with adequate oxygen saturations so he did not require treatment. Patient was on Coumadin with INR 5.6. Coumadin held. INR improved and Coumadin was resumed. INR climbed to 3.6 and Coumadin was held on 07/03/2022. 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 Patient's IV had disconnected from the hub and he was actively bleeding. There was evidence of large volume of blood loss with extensive clot lying beside the patient in the bed and on the floor. Nursing had been in the room 45 minutes prior to this without evidence of bleeding. Patient was tachycardic and hypotensive. He was fluid resuscitated. Rapid transfusion protocol was initiated and he did receive 2 units of packed red blood cells. He also received IV fluids. BP did improve with this intervention. The family arrived and wished to proceed with comfort measures only. There was already an ongoing discussion about hospice care for this patient prior to this event. Family wished not to proceed with any further treatment. Patient was made comfortable. He on the morning of July 04. Family was at bedside. All questions were answered. Additional Data Confirmation of as documented by pronouncing clinician: Pupillary Reflex, Palpable Pulses, Response to Stimuli, Heart Tones and Breath Sounds Name of Provider Notified: Dr. Solano Time Provider Notified: 10:17 Provider Requests Autopsy: No Family Requests Autopsy: No Web Production Artist Notified: Yes Date [facility] Notified of : 07/04/22 Time [facility] Notified of : 11:25
== END 2022-07-04 10:10 | disposition expired | DRG 177 ==
LOC: ANHED 11:45 → ANH3MEDSUR 12:14
PROVIDERS: Internal Medicine; Admitting Provider Family Medicine; Emergency Provider Emergency Medicine; PCP Family Medicine; Visit Provider Internal Medicine
DX: U07.1 COVID-19 (principal); J18.9 Pneumonia, unspecified organism; I48.19 Other persistent atrial fibrillation; N17.9 Acute kidney failure, unspecified; R57.1 Hypovolemic shock; G20 Parkinson's disease; F02.80 Dementia in other diseases classified elsewhere, unspecified severity, without behavioral disturbance, psychotic disturbance, mood disturbance, and anxiety; R26.81 Unsteadiness on feet; Z66 Do not resuscitate; R58 Hemorrhage, not elsewhere classified; R79.1 Abnormal coagulation profile; I10 Essential (primary) hypertension; E78.2 Mixed hyperlipidemia; N40.0 Benign prostatic hyperplasia without lower urinary tract symptoms; G62.9 Polyneuropathy, unspecified; R09.82 Postnasal drip; M19.90 Unspecified osteoarthritis, unspecified site; H40.9 Unspecified glaucoma; D64.9 Anemia, unspecified; M54.9 Dorsalgia, unspecified; G89.29 Other chronic pain; Z79.01 Long term (current) use of anticoagulants; Z79.899 Other long term (current) drug therapy; Z86.73 Personal history of transient ischemic attack (TIA), and cerebral infarction without residual deficits; Z95.3 Presence of xenogenic heart valve
CPT/HCPCS: 36415; 36430; 70450; 71045; 71046; 80048; 80053; 80076; 81003; 82140; 82948; 83605; 84145; 84439; 84443; 84484; 85025; 85027; 85055; 85610; 85730; 86592; 86850; 86900; 86901; 86920; 93005; 96365; 96366; 96375; 99285; A9270; C9803; G0378; J0456; J0696; J1630; J2060; J7030; P9016; U0003; U0005